=== PATIENT | female | born 1995 | race African-American/Black ===

== ENCOUNTER 2016-05-27 10:52 | Emergency (ER) | payer MEDICAID ==
[~2016-05-27] VITALS: Ht 144.8 cm; Wt 35.4 kg
[2016-05-27 11:19] VITALS: BP 100/68
[2016-05-27] MEDS ORDERED: PROMETHAZINE-C118 M1 ORAL (11:24)
[2016-05-27] MEDS ORDERED: AZITHROMYCIN250 MG ORAL (11:24)
[2016-05-27 11:33] VITALS: BP 101/74
[2016-05-27 11:34] VITALS: BP 100/68
--- NOTE | 2016-05-27 14:00 | Emergency Room Report ---
History of Present Illness General Chief Complaint: Flu Like Symptoms Source: Patient Present Illness HPI 21-year-old female presents to ED complaining of cough x3 weeks. States cough is productive with yellowish sputum. Denies fevers or chills. Notes history of asthma. Denies shortness of breath. Denies sick contacts or recent travel. No aggravating or relieving factors. Denies any other associated symptoms Allergies: Coded Allergies: No Known Allergies (Unverified , 05/27/16) Patient History Past Medical History: asthma Past Surgical History: none Pertinent Family History: none Social History: Denies: alcohol use, drug use, smoking Now: No Immunizations: UTD Reviewed Nursing Documentation: PMH: Agreed, PSxH: Agreed Nursing Documentation-PMH Past Medical History: No History, Except For Hx Asthma: Yes Review of Systems All Other Systems: negative except mentioned in HPI Physical Exam Vital Signs Date Time Temp Pulse Resp B/P Pulse Ox O2 Delivery O2 Flow Rate FiO2 05/27/16 11:11 98.1 106 20 100/68 99 Room Air Sp02 EP Interpretation: reviewed, normal General Appearance: no apparent distress, alert, GCS 15, non-toxic Head: normocephalic Eyes: bilateral eye PERRL, bilateral eye normal inspection ENT: hearing grossly normal, normal pharynx, no angioedema, normal voice Neck: normal inspection Respiratory: chest non-tender, lungs clear, normal breath sounds, speaking full sentences Cardiovascular #1: regular rate, rhythm, no edema Gastrointestinal: normal inspection Rectal: deferred Genitourinary: no CVA tenderness Musculoskeletal: normal inspection Neurologic: normal inspection Psychiatric: normal inspection Skin: normal inspection Lymphatic: normal inspection Medical Decision Making Diagnostic Impression: Primary Impression: Atypical pneumonia ER Course Hospital Course 21-year-old female presents to ED complaining of cough x 3 weeks Differential diagnoses include: URI, pharyngitis, otitis media, asthma Clinical course Patient placed on stretcher. After initial history, physical exam reveals a young female in no acute distress. Bilateral TM unremarkable. No pharyngeal erythema. No tonsillar exudates. No lymphadenopathy. lungs clear. abdomen soft. Persistence of symptoms for 3 weeks we will treat as atypical pneumonia. We will prescribed antibiotic Diagnosis - atypical pneumonia Stable and discharged home with Rx Zpack. Instructed to followup with PMD. Return to ED if symptoms recur or worsen Last Vital Signs Date Time Temp Pulse Resp B/P Pulse Ox O2 Delivery O2 Flow Rate FiO2 05/27/16 11:34 98.1 99 20 100/68 99 Room Air Status: improved Disposition: HOME, SELF-CARE Condition: Stable Scripts Codeine/Promethazine Hcl* (PROMETHAZINE-CODEINE SYRUP*) 118 Ml Syrup 5 ML ORAL Q6H Y for For Cough, #118 ML 0 Refills Prov: CONSTANTINO BEDOLLA M.D. 05/27/16 Azithromycin* (ZITHROMAX*) 250 Mg Tablet 250 MG ORAL DAILY, #6 TAB 0 Refills Take two tablets by mouth today, then take one tablet by mouth daily for four days Prov: CONSTANTINO BEDOLLA M.D. 05/27/16 Referrals: NOT CHOSEN [facility]/,REFERRING (PCP) Patient Instructions: Community-Acquired Pneumonia, Adult CONSTANTINO BEDOLLA M.D. May 27, 2016 14:00
== END 2016-05-27 11:35 | disposition home or self-care (01) ==
LOC: EMR 11:26
DX: J18.9 Pneumonia, unspecified organism (principal); J45.909 Unspecified asthma, uncomplicated
CPT/HCPCS: 99284

== ENCOUNTER 2016-08-03 11:41 | Emergency (ER) | payer MEDICAID ==
[~2016-08-03] VITALS: Ht 144.8 cm; Wt 29.0 kg
[~2016-08-03 11:41] MED LIST: AZITHROMYCIN250 MG ORAL; PROMETHAZINE-C118 M1 ORAL
[2016-08-03 11:55] VITALS: BP 103/86
[2016-08-03] MEDS ORDERED: PredniSONE 20mg tab ORAL ONE (12:00)
[2016-08-03] MEDS ORDERED: Ipratropium 0.02% Inh Soln 2.5ml UD HHN ONE (12:00)
[2016-08-03] MEDS ORDERED: Albuterol ud Inhalation HHN ONE (12:00)
[2016-08-03 12:30] VITALS: BP 105/74
[2016-08-03] MEDS ORDERED: PREDNISONE20 MG ORAL (12:56)
[2016-08-03] MEDS ORDERED: ALBUTEROL SULF8.5 GM INH (12:56)
[2016-08-03 13:04] VITALS: BP 105/74
--- NOTE | 2016-08-03 14:47 | Emergency Room Report ---
History of Present Illness General Chief Complaint: Asthma Source: Patient Present Illness HPI 21-year-old female presents ED complaining of wheezing and shortness of breath since last night. States that she has history of asthma. States her inhaler is not helping. Denies any cough. Denies any chest pain. Denies any fevers or chills. No other aggravating relieving factors. Denies any other associated symptoms Allergies: Coded Allergies: No Known Allergies (Unverified , 05/27/16) Patient History Past Medical History: asthma Past Surgical History: none Pertinent Family History: none Social History: Denies: alcohol use, drug use, smoking Now: No Immunizations: UTD Reviewed Nursing Documentation: PMH: Agreed, PSxH: Agreed Nursing Documentation-PMH Hx Cardiac Problems: No Hx Hypertension: No Hx Pacemaker: No Hx Asthma: Yes Hx COPD: No Hx Diabetes: No Hx Cancer: No Hx Gastrointestinal Problems: No Hx Dialysis: No History Of Psychiatric Problem: No Hx Neurological Problems: No Hx Cerebrovascular Accident: No Hx Seizures: No Review of Systems All Other Systems: negative except mentioned in HPI Physical Exam Vital Signs Date Time Temp Pulse Resp B/P Pulse Ox O2 Delivery O2 Flow Rate FiO2 08/03/16 11:46 98.1 110 18 100/60 99 Room Air Sp02 EP Interpretation: reviewed, normal General Appearance: no apparent distress, alert, GCS 15, non-toxic, thin Head: normocephalic Eyes: bilateral eye PERRL, bilateral eye normal inspection ENT: normal ENT inspection Neck: normal inspection Respiratory: wheezing Cardiovascular #1: regular rate, rhythm, no edema Gastrointestinal: normal bowel sounds Rectal: deferred Genitourinary: no CVA tenderness Musculoskeletal: normal inspection Neurologic: alert, oriented x3, responsive, motor strength/tone normal, sensory intact, speech normal Psychiatric: normal inspection Skin: normal inspection Lymphatic: normal inspection Medical Decision Making Diagnostic Impression: Primary Impression: Asthma attack ER Course Hospital Course 21-year-old female presents to ED complaining of SOB, wheezing Differential diagnoses include: URI, bronchitis, asthma/COPD, pneumonia Clinical course Patient placed on stretcher. After initial history, physical exam reveals a young female in no acute distress. Bilateral TM unremarkable. No pharyngeal erythema. No tonsillar exudates. No lymphadenopathy. Mild wheezing noted on exam, no signs of respiratory distress or retractions. Patient given Prednisone and albuterol treatment in ED with symptoms improved. Reassurance given Diagnosis - asthma attack Stable and discharged home with prescriptions for prednisone, albuterol. Instructed to followup with PMD. Return to ED if symptoms recur or worsen Last Vital Signs Date Time Temp Pulse Resp B/P Pulse Ox O2 Delivery O2 Flow Rate FiO2 08/03/16 13:04 98.1 115 18 105/74 100 Room Air Status: improved Disposition: HOME, SELF-CARE Condition: Stable Scripts Prednisone* (PREDNISONE*) 20 Mg Tablet 40 MG ORAL DAILY, #10 TAB Prov: CONSTANTINO BEDOLLA M.D. 08/03/16 Albuterol Sulfate* (ALBUTEROL SULFATE MDI*) 8.5 Gm Hfa.aer.ad 2 PUFF INH Q4H, #1 INH 0 Refills Prov: CONSTANTINO BEDOLLA M.D. 08/03/16 Referrals: NOT CHOSEN [facility]/,REFERRING (PCP) Patient Instructions: Asthma, Adult CONSTANTINO BEDOLLA M.D. Aug 03, 2016 14:47
== END 2016-08-03 13:06 | disposition home or self-care (01) ==
LOC: EMR 12:38
DX: J45.909 Unspecified asthma, uncomplicated (principal)
CPT/HCPCS: 94640; 99284

== ENCOUNTER 2018-06-03 13:58 | Emergency (ER) | payer MEDICAID ==
[~2018-06-03] VITALS: Ht 149.9 cm; Wt 31.8 kg
[~2018-06-03 13:58] MED LIST changes: +ALBUTEROL SULF8.5 GM INH; +PREDNISONE20 MG ORAL
[2018-06-03 14:16] VITALS: BP 103/70
--- NOTE | 2018-06-03 14:16 | NUR ---
ED Nurse Note: pt walked in to ED due to coughing, chest congestion, fever, and chills for last few days. respirations even and non-labored noted. breath sounds clear. intermittent cough noted. no fever at this time. will wait for the further order.
--- NOTE | 2018-06-03 14:20 | NUR ---
ED Nurse Note: RT called.
[2018-06-03] MEDS ORDERED: Albuterol/Ipratropium 3ml neb HHN ONE (14:45)
--- NOTE | 2018-06-03 15:30 | Emergency Room Report ---
History of Present Illness General Chief Complaint: Upper Respiratory Illness Source: Medical Record Present Illness HPI 23-year-old female presents to the emergency department complaining of productive cough 2 weeks with subjective fevers and chills. Patient reports she has a history of asthma she denies smoking or COPD. reports 4/10 in severity ribcage/lung pains when coughing only. no relieving factors, has been using inhaler with no relief. Patient denies recent travel or ill contacts.Denies sore throat, ear pain, high fevers, lethargy, neck pain/ stiffness, irritability, photophobia dehydration, N/V/D. Denies Cp, Palpitations , LOC, AMS, seizures, paresthesias, or changes in Hearing or vision, no Sudden severe MILNER. Denies hx of smoking, asthma or COPD. 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 Hx Hypertension: No Hx Pacemaker: No Hx Asthma: Yes Hx COPD: No Hx Diabetes: No Hx Cancer: No Hx Gastrointestinal Problems: No Hx Dialysis: No History Of Psychiatric Problem: No Hx Neurological Problems: No Hx Cerebrovascular Accident: No Hx Seizures: No Review of Systems All Other Systems: negative except mentioned in HPI Physical Exam Vital Signs Date Time Temp Pulse Resp B/P (MAP) Pulse Ox O2 Delivery O2 Flow Rate FiO2 06/03/18 14:02 98.2 108 22 103/70 99 Room Air 06/03/18 14:59 21 Sp02 EP Interpretation: reviewed, normal General Appearance: no apparent distress, alert, GCS 15, non-toxic Head: normocephalic, atraumatic Eyes: bilateral eye normal inspection, bilateral eye PERRL ENT: hearing grossly normal, normal voice, pharyngeal erythema Neck: full range of motion Respiratory: chest non-tender, lungs clear, speaking full sentences, wheezing Cardiovascular #1: regular rate, rhythm Musculoskeletal: gait/station normal, normal range of motion, non-tender Neurologic: alert, oriented x3, responsive, motor strength/tone normal, sensory intact, speech normal, grossly normal Psychiatric: judgement/insight normal Skin: normal color, no rash, warm/dry, well hydrated Lymphatic: no adenopathy Medical Decision Making PA Attestation Dr. Adamson is my supervising Physician whom patient management has been discussed with. Diagnostic Impression: Primary Impression: Atypical pneumonia ER Course 23-year-old female presents to the emergency department complaining of productive cough 2 weeks with subjective fevers and chills. Patient reports she has a history of asthma she denies smoking or COPD. reports 4/10 in severity ribcage/lung pains when coughing only. no relieving factors, has been using inhaler with no relief. Patient denies recent travel or ill contacts.Denies sore throat, ear pain, high fevers, lethargy, neck pain/ stiffness, irritability, photophobia dehydration, N/V/D. Denies Cp, Palpitations , LOC, AMS, seizures, paresthesias, or changes in Hearing or vision, no Sudden severe MILNER. Denies hx of smoking, asthma or COPD. . Ddx considered but are not limited to URI, pneumonia, PE, strep pharyngitis, meningitis. Vital signs: Pt.is afebrile VS are WNL H&PE are most consistent with atypical PNA ORDERS: none required at this time, the diagnosis is clinical ED INTERVENTIONS: -Elizabeth RESENDEZN -I do not identify an emergent condition at this time. With current presentation , pt. is stable for close outpatient follow up and conservative treatment. D/ w pt. to return promptly to ED with worsening or new symptoms.- Pt. verbalizes' understanding and agreement with proposed treatment plan.proposed treatment plan. DISCHARGE: At this time pt. is stable for d/c to home. Will provide printed patient care instructions, and any necessary prescriptions. Care plan and follow up instructions have been discussed with the patient prior to discharge. Last Vital Signs Date Time Temp Pulse Resp B/P (MAP) Pulse Ox O2 Delivery O2 Flow Rate FiO2 06/03/18 14:59 115 22 96 Room Air 21 06/03/18 14:16 98.2 103/70 Disposition: HOME, SELF-CARE Condition: Stable Scripts Prednisone* (PREDNISONE*) 20 Mg Tablet 40 MG ORAL DAILY for 4 Days, #8 TAB Prov: Fabiola Damon 06/03/18 Guaifenesin (Guaifenesin) 1,200 Mg Tab.er.12h 1200 MG PO Q12HR, #20 TAB Prov: Fabiola Damon 06/03/18 Azithromycin* (ZITHROMAX*) 250 Mg Tablet 250 MG ORAL DAILY, #6 TAB 0 Refills Take two tables once daily for 1 day, then one tablet once daily for 4 days. Prov: Fabiola Damon 06/03/18 Codeine/Promethazine Hcl* (PROMETHAZINE-CODEINE SYRUP*) 118 Ml Syrup 5 ML ORAL Q6H PRN for For Cough, #120 ML 0 Refills Prov: Fabiola Damon 06/03/18 Referrals: NON PHYSICIAN (PCP) Patient Instructions: Upper Respiratory Infection, Adult Additional Instructions: Take medications as directed. Follow up with a Primary Care Provider in 3-5 days, even if your symptoms have resolved. --Please review list of primary care clinics, if you do not already have a primary care provider Return sooner to ED if new symptoms occur, or current symptoms become worse. Do not drink alcohol, drive, or operate heavy machinery while taking Cough Syrup as this may cause drowsiness. - Please note that this Emergency Department Report was dictated using [employer] packer operator technology software, occasionally this can lead to erroneous entry secondary to interpretation by the dictation equipment. Fabiola Damon Jun 03, 2018 15:30
[2018-06-03] MEDS ORDERED: GUAIFENESIN1200 MG PO (15:32)
[2018-06-03] MEDS ORDERED: PREDNISONE20 MG ORAL (15:32)
[2018-06-03] MEDS ORDERED: ZITHROMAX250 MG ORAL (15:32)
[2018-06-03] MEDS ORDERED: PROMETHAZINE-C118 M1 ORAL (15:32)
[2018-06-03 15:50] VITALS: BP 108/72
--- NOTE | 2018-06-03 15:51 | NUR ---
ER DISCHARGE NOTE: Patient is cleared to be discharged per ERMD, pt is aox4, on room air, with stable vital signs. pt was given dc and prescription instructions, pt was able to verbalize understanding, pt id band removed. pt is able to ambulate with steady gait. pt took all belongings.
== END 2018-06-03 15:52 | disposition home or self-care (01) ==
LOC: EMR 14:10
DX: J18.9 Pneumonia, unspecified organism (principal); J45.909 Unspecified asthma, uncomplicated
CPT/HCPCS: 94640; 99284; J7620

== ENCOUNTER 2018-11-15 18:49 | Inpatient (IN) | payer MEDICAID, OTHER ==
[~2018-11-15] VITALS: Ht 144.8 cm; Wt 27.2 kg
[~2018-11-15 18:49] MED LIST changes: +GUAIFENESIN1200 MG PO; +ZITHROMAX250 MG ORAL
[2018-11-15 19:01] VITALS: BP 100/70
--- NOTE | 2018-11-15 19:02 | NUR ---
ED Nurse Note: Pt walked into ED C/O sore throat for few days today pt has N/V. pt is alert x4. VSS.
--- NOTE | 2018-11-15 19:15 | NUR ---
ED Nurse Note: urine and blood work sent to lab
[2018-11-15 19:43] LABS: HEMATOCRIT 34.7 % (37.0-47.0); HEMOGLOBIN 10.7 G/DL (12.0-16.0); MEAN CORPUSCULAR VOLUME 81 FL (80-99); PLATELET COUNT 479 K/UL (150-450); RED BLOOD COUNT 4.29 M/UL (4.20-5.40); RED CELL DISTRIBUTION WIDTH 12.2 % (11.6-14.8)
[2018-11-15 19:44] LABS: WHITE BLOOD COUNT 23.7 K/UL (4.8-10.8)
[2018-11-15 19:48] LABS: APPEARANCE,URINE CLEAR; BILIRUBIN, URINE NEGATIVE (NEGATIVE); COLOR,URINE PALE YELLOW; GLUCOSE, URINE (UA) NEGATIVE (NEGATIVE); KETONES,URINE 1+ (NEGATIVE); LEUKOCYTE ESTERASE ,URINE NEGATIVE (NEGATIVE); NITRITE,URINE NEGATIVE (NEGATIVE); PH,URINE 6.5 (4.5-8.0); PROTEIN,URINE NEGATIVE (NEGATIVE); UROBILINOGEN,URINE NORMAL MG/DL (0.0-1.0)
[2018-11-15 19:53] LABS: ANION GAP 8 mmol/L (5-15); BLOOD UREA NITROGEN 14 mg/dL (7-18); CALCIUM 8.2 MG/DL (8.5-10.1); CARBON DIOXIDE 27 MMOL/L (21-32); CHLORIDE 106 MMOL/L (98-107); CREATININE 0.8 MG/DL (0.55-1.30); POTASSIUM 3.7 MMOL/L (3.5-5.1); SODIUM 141 MMOL/L (136-145)
[2018-11-15 19:57] LABS: ALANINE AMINOTRANSFERASE 63 U/L (12-78); ALBUMIN 3.3 G/DL (3.4-5.0); ALBUMIN/GLOBULIN RATIO 0.8 (1.0-2.7); ALKALINE PHOSPHATASE 51 U/L (46-116); ASPARTATE AMINO TRANSFERASE 37 U/L (15-37); BILIRUBIN,TOTAL 0.6 MG/DL (0.2-1.0)
[2018-11-15 21:05] VITALS: BP 99/75
--- NOTE | 2018-11-15 21:34 | Emergency Room Report ---
History of Present Illness General Chief Complaint: Gastrointestinal Illness Present Illness HPI 23-year-old female presents to the emergency department complaining of severe generalized weakness and fatigue post multiple episodes of nausea and vomiting since this morning. Patient also reports initial symptom was a sore throat this a.m. Patient denies fevers or chills she denies ill contacts with similar symptoms or recent travel. Patient denies abdominal tenderness denies or suspicion of . Patient denies dysuria, hematuria, urinary frequency or urgency. She reports multiple episodes of dizziness as well and having cold sweats. She denies MILNER or photophobia. Significant past medical history is Lc-Silver syndrome. She denies constipation or diarrhea. Denies trauma or fall. Denies rashes, swollen tender lymph nodes, night sweats or significant changes in weight unintentionally. Allergies: Coded Allergies: No Known Allergies (Unverified , 05/27/16) Patient History Past Medical History: see triage record Past Surgical History: none Pertinent Family History: none Last Menstrual Period: last month Now: No Immunizations: UTD - received flu vaccination last week. Reviewed Nursing Documentation: PMH: Agreed; PSxH: Agreed Nursing Documentation-PMH Past Medical History: No History, Except For Hx Hypertension: No Hx Pacemaker: No Hx Asthma: Yes Hx COPD: No Hx Diabetes: No Hx Cancer: No Hx Gastrointestinal Problems: No Hx Dialysis: No Hx Neurological Problems: No Hx Cerebrovascular Accident: No Hx Seizures: No Review of Systems All Other Systems: negative except mentioned in HPI Physical Exam Vital Signs Date Time Temp Pulse Resp B/P (MAP) Pulse Ox O2 Delivery O2 Flow Rate FiO2 11/15/18 18:54 98.1 116 20 102/70 (81) 98 Room Air Sp02 EP Interpretation: reviewed, normal General Appearance: alert, GCS 15, non-toxic, mild distress, thin Head: normocephalic, atraumatic Eyes: bilateral eye normal inspection, bilateral eye PERRL ENT: hearing grossly normal, normal voice, pharyngeal erythema Neck: full range of motion, no meningismus, no bony tend Respiratory: lungs clear, normal breath sounds, speaking full sentences Cardiovascular #1: regular rate, rhythm, tachycardia Gastrointestinal: normal bowel sounds, non tender, soft, non-distended, no guarding Genitourinary: normal inspection, no CVA tenderness Musculoskeletal: back normal, gait/station normal, normal range of motion, non- tender Neurologic: alert, oriented x3, responsive, motor strength/tone normal, sensory intact, speech normal, grossly normal Psychiatric: judgement/insight normal Lymphatic: no adenopathy Medical Decision Making PA Attestation Dr. Vital is my supervising Physician whom patient management has been discussed with. ER Course Pt. presents to the ED c/o [ ] Ddx considered but are not limited to : GE, , URI, dehydration just to name a few. Vital signs: Tachycardic , afebrile H&PE are most consistent with moderate dehydration will do abdominal labs ORDERS: -CBC: leukocytosis 23.7, thrombocytopenia -CMP: Ca 8.2 -Lipase: 512 -Blood Cultures : Pending -Lactic Acid: Pending repeat -CBC: Pending -Lipase: Pending ED INTERVENTIONS: 2 Liters NS Bolus DISPOSITION: PT. signed out to Dr. Puckett pending Admission Labs Test 11/15/18 19:00 White Blood Count 23.7 K/UL (4.8-10.8) Red Blood Count 4.29 M/UL (4.20-5.40) Hemoglobin 10.7 G/DL (12.0-16.0) Hematocrit 34.7 % (37.0-47.0) Mean Corpuscular Volume 81 FL (80-99) Mean Corpuscular Hemoglobin 24.9 PG (27.0-31.0) Mean Corpuscular Hemoglobin Concent 30.8 G/DL (32.0-36.0) Red Cell Distribution Width 12.2 % (11.6-14.8) Platelet Count 479 K/UL (150-450) Mean Platelet Volume 5.8 FL (6.5-10.1) Neutrophils (%) (Auto) % (45.0-75.0) Lymphocytes (%) (Auto) % (20.0-45.0) Monocytes (%) (Auto) % (1.0-10.0) Eosinophils (%) (Auto) % (0.0-3.0) Basophils (%) (Auto) % (0.0-2.0) Differential Total Cells Counted 100 Neutrophils % (Manual) 91 % (45-75) Lymphocytes % (Manual) 3 % (20-45) Monocytes % (Manual) 3 % (1-10) Eosinophils % (Manual) 1 % (0-3) Basophils % (Manual) 0 % (0-2) Band Neutrophils 2 % (0-8) Platelet Estimate Increased Platelet Morphology Normal Polychromasia 1+ Urine Color Pale yellow Urine Appearance Clear Urine pH 6.5 (4.5-8.0) Urine Specific [place] 1.015 (1.005-1.035) Urine Protein Negative (NEGATIVE) Urine Glucose (UA) Negative (NEGATIVE) Urine Ketones 1+ (NEGATIVE) Urine Blood Negative (NEGATIVE) Urine Nitrite Negative (NEGATIVE) Urine Bilirubin Negative (NEGATIVE) Urine Urobilinogen Normal MG/DL (0.0-1.0) Urine Leukocyte Esterase Negative (NEGATIVE) Urine HCG, Qualitative Negative (NEGATIVE) Sodium Level 141 MMOL/L (136-145) Potassium Level 3.7 MMOL/L (3.5-5.1) Chloride Level 106 MMOL/L (98-107) Carbon Dioxide Level 27 MMOL/L (21-32) Anion Gap 8 mmol/L (5-15) Blood Urea Nitrogen 14 mg/dL (7-18) Creatinine 0.8 MG/DL (0.55-1.30) Estimat Glomerular Filtration Rate > 60 mL/min (>60) Glucose Level 139 MG/DL (74-106) Calcium Level 8.2 MG/DL (8.5-10.1) Total Bilirubin 0.6 MG/DL (0.2-1.0) Aspartate Amino Transf (AST/SGOT) 37 U/L (15-37) Alanine Aminotransferase (ALT/SGPT) 63 U/L (12-78) Alkaline Phosphatase 51 U/L (46-116) Total Protein 7.6 G/DL (6.4-8.2) Albumin 3.3 G/DL (3.4-5.0) Globulin 4.3 g/dL Albumin/Globulin Ratio 0.8 (1.0-2.7) Lipase 512 U/L (73-393) Last Vital Signs Date Time Temp Pulse Resp B/P (MAP) Pulse Ox O2 Delivery O2 Flow Rate FiO2 11/15/18 19:01 92 20 Room Air 11/15/18 19:01 98.1 100/70 98 Disposition: ADMITTED INPATIENT Condition: Serious Signed Out To: Fabiola Negron Nov 15, 2018 21:34
--- NOTE | 2018-11-15 21:52 | NUR ---
ED Nurse Note: pt sitting in bed awake. No acute distress is noted at this time.
--- NOTE | 2018-11-15 22:19 | Emergency Room Report ---
Physical Exam Vital Signs Date Time Temp Pulse Resp B/P (MAP) Pulse Ox O2 Delivery O2 Flow Rate FiO2 11/15/18 18:54 98.1 116 20 102/70 (81) 98 Room Air (Eduardo Vital MD) Medical Decision Making Diagnostic Impression: Primary Impression: Pancreatitis Qualified Codes: K85.90 - Acute pancreatitis without necrosis or infection, unspecified Additional Impressions: Leukocytosis Qualified Codes: D72.829 - Elevated white blood cell count, unspecified Thrombocythemia Anemia Qualified Codes: D64.9 - Anemia, unspecified ER Course I supervised the care of this patient with EDITH Senior and agree with the treatment plan Briefly, this is a 23-year-old otherwise healthy female who presented to the emergency department today for nausea vomiting with lightheadedness and sore throat days ago. She was found to have a significant leukocytosis with a left shift at 91. Thrombocytosis and anemic though does not require transfusion is not actively bleeding. Lipase was elevated. LFTs were within normal limits. A CT scan and right upper quadrant ultrasound will be ordered. Repeat CBC and lipase after IV fluids. Patient will be signed out to Dr. Puckett pending repeat labs and CT results Laboratory Tests Test 11/15/18 19:00 White Blood Count 23.7 K/UL (4.8-10.8) *H Red Blood Count 4.29 M/UL (4.20-5.40) Hemoglobin 10.7 G/DL (12.0-16.0) L Hematocrit 34.7 % (37.0-47.0) L Mean Corpuscular Volume 81 FL (80-99) Mean Corpuscular Hemoglobin 24.9 PG (27.0-31.0) L Mean Corpuscular Hemoglobin Concent 30.8 G/DL (32.0-36.0) L Red Cell Distribution Width 12.2 % (11.6-14.8) Platelet Count 479 K/UL (150-450) H Mean Platelet Volume 5.8 FL (6.5-10.1) L Neutrophils (%) (Auto) % (45.0-75.0) Lymphocytes (%) (Auto) % (20.0-45.0) Monocytes (%) (Auto) % (1.0-10.0) Eosinophils (%) (Auto) % (0.0-3.0) Basophils (%) (Auto) % (0.0-2.0) Differential Total Cells Counted 100 Neutrophils % (Manual) 91 % (45-75) H Lymphocytes % (Manual) 3 % (20-45) L Monocytes % (Manual) 3 % (1-10) Eosinophils % (Manual) 1 % (0-3) Basophils % (Manual) 0 % (0-2) Band Neutrophils 2 % (0-8) Platelet Estimate Increased H Platelet Morphology Normal Polychromasia 1+ Urine Color Pale yellow Urine Appearance Clear Urine pH 6.5 (4.5-8.0) Urine Specific [place] 1.015 (1.005-1.035) Urine Protein Negative (NEGATIVE) Urine Glucose (UA) Negative (NEGATIVE) Urine Ketones 1+ (NEGATIVE) H Urine Blood Negative (NEGATIVE) Urine Nitrite Negative (NEGATIVE) Urine Bilirubin Negative (NEGATIVE) Urine Urobilinogen Normal MG/DL (0.0-1.0) Urine Leukocyte Esterase Negative (NEGATIVE) Urine HCG, Qualitative Negative (NEGATIVE) Sodium Level 141 MMOL/L (136-145) Potassium Level 3.7 MMOL/L (3.5-5.1) Chloride Level 106 MMOL/L (98-107) Carbon Dioxide Level 27 MMOL/L (21-32) Anion Gap 8 mmol/L (5-15) Blood Urea Nitrogen 14 mg/dL (7-18) Creatinine 0.8 MG/DL (0.55-1.30) Estimate Glomerular Filtration Rate > 60 mL/min (>60) Glucose Level 139 MG/DL (74-106) H Calcium Level 8.2 MG/DL (8.5-10.1) L Total Bilirubin 0.6 MG/DL (0.2-1.0) Aspartate Amino Transferase (AST) 37 U/L (15-37) Alanine Aminotransferase (ALT) 63 U/L (12-78) Alkaline Phosphatase 51 U/L (46-116) Total Protein 7.6 G/DL (6.4-8.2) Albumin 3.3 G/DL (3.4-5.0) L Globulin 4.3 g/dL Albumin/Globulin Ratio 0.8 (1.0-2.7) L Lipase 512 U/L (73-393) H (Eduardo Vital MD) ER Course Patient to be admitted for pancreatitis Patient admitted to Dr. Shun Love Laboratory Tests Test 11/15/18 19:00 11/15/18 23:00 White Blood Count 23.7 K/UL (4.8-10.8) *H 22.0 K/UL (4.8-10.8) H Red Blood Count 4.29 M/UL (4.20-5.40) 4.56 M/UL (4.20-5.40) Hemoglobin 10.7 G/DL (12.0-16.0) L 11.2 G/DL (12.0-16.0) L Hematocrit 34.7 % (37.0-47.0) L 36.3 % (37.0-47.0) L Mean Corpuscular Volume 81 FL (80-99) 80 FL (80-99) Mean Corpuscular Hemoglobin 24.9 PG (27.0-31.0) L 24.7 PG (27.0-31.0) L Mean Corpuscular Hemoglobin Concent 30.8 G/DL (32.0-36.0) L 30.9 G/DL (32.0-36.0) L Red Cell Distribution Width 12.2 % (11.6-14.8) 13.3 % (11.6-14.8) Platelet Count 479 K/UL (150-450) H 500 K/UL (150-450) H Mean Platelet Volume 5.8 FL (6.5-10.1) L 5.5 FL (6.5-10.1) L Neutrophils (%) (Auto) % (45.0-75.0) % (45.0-75.0) Lymphocytes (%) (Auto) % (20.0-45.0) % (20.0-45.0) Monocytes (%) (Auto) % (1.0-10.0) % (1.0-10.0) Eosinophils (%) (Auto) % (0.0-3.0) % (0.0-3.0) Basophils (%) (Auto) % (0.0-2.0) % (0.0-2.0) Differential Total Cells Counted 100 100 Neutrophils % (Manual) 91 % (45-75) H 84 % (45-75) H Lymphocytes % (Manual) 3 % (20-45) L 9 % (20-45) L Monocytes % (Manual) 3 % (1-10) 7 % (1-10) Eosinophils % (Manual) 1 % (0-3) 0 % (0-3) Basophils % (Manual) 0 % (0-2) 0 % (0-2) Band Neutrophils 2 % (0-8) 0 % (0-8) Platelet Estimate Increased H Adequate Platelet Morphology Normal Normal Polychromasia 1+ Urine Color Pale yellow Urine Appearance Clear Urine pH 6.5 (4.5-8.0) Urine Specific [place] 1.015 (1.005-1.035) Urine Protein Negative (NEGATIVE) Urine Glucose (UA) Negative (NEGATIVE) Urine Ketones 1+ (NEGATIVE) H Urine Blood Negative (NEGATIVE) Urine Nitrite Negative (NEGATIVE) Urine Bilirubin Negative (NEGATIVE) Urine Urobilinogen Normal MG/DL (0.0-1.0) Urine Leukocyte Esterase Negative (NEGATIVE) Urine HCG, Qualitative Negative (NEGATIVE) Sodium Level 141 MMOL/L (136-145) Potassium Level 3.7 MMOL/L (3.5-5.1) Chloride Level 106 MMOL/L (98-107) Carbon Dioxide Level 27 MMOL/L (21-32) Anion Gap 8 mmol/L (5-15) Blood Urea Nitrogen 14 mg/dL (7-18) Creatinine 0.8 MG/DL (0.55-1.30) Estimate Glomerular Filtration Rate > 60 mL/min (>60) Glucose Level 139 MG/DL (74-106) H Calcium Level 8.2 MG/DL (8.5-10.1) L Total Bilirubin 0.6 MG/DL (0.2-1.0) Aspartate Amino Transferase (AST) 37 U/L (15-37) Alanine Aminotransferase (ALT) 63 U/L (12-78) Alkaline Phosphatase 51 U/L (46-116) Total Protein 7.6 G/DL (6.4-8.2) Albumin 3.3 G/DL (3.4-5.0) L Globulin 4.3 g/dL Albumin/Globulin Ratio 0.8 (1.0-2.7) L Lipase 512 U/L (73-393) H 732 U/L (73-393) H Lactic Acid Level 1.00 mmol/L (0.4-2.0) (Seamus Puckett MD) CT/MRI/US Diagnostic Results CT/MRI/US Diagnostic Results : Impression Preliminary Findings Only See Final Report For Complete Findings CT ABDOMEN & PELVIS With Contrast: Lower lungs: No acute findings. Liver: Unremarkable. Gallbladder: Unremarkable. Spleen, pancreas, and adrenal glands: No acute findings. Kidneys: No hydronephrosis or obstructive nephrolithiasis. Bowel: No bowel obstruction. Diffusely fluid-filled hyperemic small bowel, correlate with gastroenteritis. Appendix: Not visualized. No secondary signs of appendicitis is seen however. If further evaluation is required consider oral contrast administration. Bladder: Unremarkable. Pelvic organs: Fluid-filled endometrium. Trace pelvic free fluid, possibly physiologic.. Vessels: No aortic aneurysm. Bones: No acute fracture. Radiologist: Abby Horner MD Study ready at 01:29 and initial results transmitted at 01:54 (Seamus Puckett MD) Last Vital Signs Date Time Temp Pulse Resp B/P (MAP) Pulse Ox O2 Delivery O2 Flow Rate FiO2 11/15/18 19:01 92 20 Room Air 11/15/18 19:01 98.1 100/70 98 (Eduardo Vital MD) Disposition: ADMITTED INPATIENT Condition: Stable Referrals: [facility],REFERRING (PCP) Eduardo Vital MD Nov 15, 2018 22:19 Seamus Puckett MD Nov 16, 2018 01:18
[2018-11-15 23:14] VITALS: BP 104/71
[2018-11-15 23:27] LABS: HEMATOCRIT 36.3 % (37.0-47.0); HEMOGLOBIN 11.2 G/DL (12.0-16.0); MEAN CORPUSCULAR VOLUME 80 FL (80-99); PLATELET COUNT 500 K/UL (150-450); RED BLOOD COUNT 4.56 M/UL (4.20-5.40); RED CELL DISTRIBUTION WIDTH 13.3 % (11.6-14.8)
[2018-11-15] MEDS ORDERED: Omnipaque-300 100ml vial INJ PRN (23:30)
--- NOTE | 2018-11-15 23:31 | NUR ---
ED Nurse Note: went down for ultrasound.
[2018-11-16] VITALS (7 sets, daily range): BP systolic 90–128; BP diastolic 62–83
--- NOTE | 2018-11-16 00:26 | Diagnostic Imaging Report ---
Indication: Abdominal pain, history of pancreatitis Technique: Moran-scale and duplex images of the upper abdomen were obtained Comparison: Reference made to subsequent abdomen pelvis CT Findings: Gallbladder is not clearly demonstrated, noted to be contracted on subsequent CT scan. Common bile duct measures 2 mm diameter. No intrahepatic biliary ductal dilatation . Liver demonstrates normal echogenicity, no focal abnormality. Portal vein and hepatic veins are patent. Pancreas is unremarkable. Spleen is unremarkable. Left kidney cannot be visualized. Right kidney measures 5.7 cm length. Right kidney demonstrates slightly increased echogenicity. There is no hydronephrosis. No focal abnormality . Non-aneurysmal abdominal aorta . Impression: Nonvisualized gallbladder, noted to be contracted on subsequent CT scan Nonvisualized left kidney Negative for biliary ductal dilatation Apparently small right kidney, presumably artifactual as it is documented to be normal in size on subsequent CT
--- NOTE | 2018-11-16 01:09 | NUR ---
ED Nurse Note: PT BACK FROM CT.
--- NOTE | 2018-11-16 01:41 | NUR ---
ED Nurse Note: REPORT GIVEN TO RN GRADY FROM
--- NOTE | 2018-11-16 01:45 | NUR ---
TRANSFER TO FLOOR: Patient transferred to [place] as ordered by in flight technician via wheelchair, per ERMD. Report given to RN GRADY FROM [facility]. Belongings sent w/ pt w/ completed list and endorsed to receiving RN. pt vss, resp even and unlabored on RA, iv intact and patent.
--- NOTE | 2018-11-16 01:50 | NUR ---
NURSE NOTES: RECEIVED REPORT FROM BLANCA GALDAMEZ. PT WAS SAFELY TRANSFERRED TO UNIT VIA WHEELCHAIR. PT IS AWAKE, AAOX4, ON ROOM AIR, VSS, NO ACUTE DISTRESS NOTED. BELONGING LIST WAS REVIEWED AND SIGNED WITH PATIENT. ORIENTED PATIENT TO UNIT AND ROOM. PT DENIES PAIN AT THE MOMENT; HOWEVER, C/O ABDOMEN BLOATING. ABDOMEN IS FLAT AND SOFT, BOWEL SOUNDS ACTIVE UPON ASSESSMENT. IV ON RIGHT AC 20G IS INTACT AND PATENT. SKIN IS INTACT. PT IS AMBULATORY WITH STEADY GAIT. BED IS LOCKED AND LOW, BED ALARMS ACTIVE, SIDE RAILS UP X2 AND CALL LIGHT IS WITHIN REACH. WILL CONTINUE TO MONITOR.
--- NOTE | 2018-11-16 01:55 | Diagnostic Imaging Report ---
Clinical Indication: Abdominal pain for one day Technique: No oral contrast utilized, per emergency room physician request IV administration nonionic contrast. Venous phase spiral acquisition obtained through the abdomen and pelvis. Multiplanar reconstructions were generated. Total dose length product 2131 mGycm. CTDIvol(s) 30 mGy. Dose reduction achieved using automated exposure control Comparison: none Findings: Exam is limited as the lower pelvis was excluded from imaging volume. The appendix is never definitely identified, but no findings to suggest acute appendicitis are evident. Focally fluid-filled mid abdominal bowel loops are noted. Uncertain as to whether this represents normal caliber colon or dilated small bowel. The distal esophagus is unremarkable. The stomach demonstrates equivocally prominent mucosal enhancement. Small bowel also demonstrates equivocally prominent mucosal enhancement although suspect that this is related to phase of scanning. The gallbladder is nondistended. The liver demonstrates unusual contrast opacification at the tip of the right hepatic lobe. Suspect this is physiologic related to phase of scanning. The bile ducts, pancreas, spleen, adrenals, kidneys are all unremarkable. No retroperitoneal or mesenteric mass or adenopathy. No definite pelvic mass or adenopathy, although as mentioned earlier the lower pelvis is excluded. The included lung bases are clear. There is fusion hardware seen in the lower thoracic spine. There is scoliotic deformity noted. Impression: Equivocal prominent mucosal enhancement of the stomach and small bowel, could be related to phase of scanning but could also be related to gastroenteritis No other acute abnormality Scoliosis This agrees with the preliminary interpretation provided overnight by [facility] teleradiology service. The CT scanner at [facility] is accredited by the [employer] and the scans are performed using protocols designed to limit radiation exposure to as low as reasonably achievable to attain images of sufficient resolution adequate for diagnostic evaluation.
--- NOTE | 2018-11-16 02:30 | NUR ---
NURSE NOTES: ATTEMPTED TO CONTACT FOR ADMISSION ORDERS MULTIPLE TIMES. LEFT VOICEMAILS. WAITING FOR RESPONDS.
--- NOTE | 2018-11-16 04:00 | NUR ---
NURSE NOTES: RECEIVED ORDERS FROM . WILL CONTINUE WITH PLAN OF CARE.
[2018-11-16 06:06] LABS: BASOPHILS % (AUTO) 0.9 % (0.0-2.0); EOSINOPHILS % (AUTO) 0.9 % (0.0-3.0); HEMATOCRIT 27.9 % (37.0-47.0); HEMOGLOBIN 8.6 G/DL (12.0-16.0); LYMPHOCYTES % (AUTO) 17.9 % (20.0-45.0); MEAN CORPUSCULAR VOLUME 80 FL (80-99); MONOCYTES % (AUTO) 6.8 % (1.0-10.0); NEUTROPHILS % (AUTO) 73.6 % (45.0-75.0); PLATELET COUNT 398 K/UL (150-450); RED BLOOD COUNT 3.49 M/UL (4.20-5.40)
[2018-11-16 06:17] LABS: ALANINE AMINOTRANSFERASE 48 U/L (12-78); ALBUMIN 2.5 G/DL (3.4-5.0); ALBUMIN/GLOBULIN RATIO 0.8 (1.0-2.7); ALKALINE PHOSPHATASE 40 U/L (46-116); ANION GAP 10 mmol/L (5-15); ASPARTATE AMINO TRANSFERASE 28 U/L (15-37); BILIRUBIN,TOTAL 0.5 MG/DL (0.2-1.0); BLOOD UREA NITROGEN 7 mg/dL (7-18); CALCIUM 6.9 MG/DL (8.5-10.1); CARBON DIOXIDE 20 MMOL/L (21-32); CHLORIDE 109 MMOL/L (98-107); CREATININE 0.5 MG/DL (0.55-1.30); POTASSIUM 3.6 MMOL/L (3.5-5.1); SODIUM 139 MMOL/L (136-145)
--- NOTE | 2018-11-16 07:43 | NUR ---
HAND-OFF: Report given to BLANCA Montiel.
--- NOTE | 2018-11-16 08:19 | NUR ---
NURSE NOTES: Patient is awake and alert and oriented,IV fluids infusing as ordered.patient ambulated to the bathroom gait is steady,Back to bed no complasinys at this arya.SCDs are on,call light within reach .
--- NOTE | 2018-11-16 10:17 | Consultation ---
History of Present Illness General Chief Complaint: Gastrointestinal Illness Present Illness Allergies: Coded Allergies: No Known Allergies (Unverified , 05/27/16) Medication History Scheduled Albuterol Sulfate* (Albuterol Sulfate Mdi*), 2 PUFF INH Q4H Azithromycin* (Zithromax*), 250 MG ORAL DAILY Azithromycin* (Zithromax*), 250 MG ORAL DAILY Guaifenesin (Guaifenesin), 1,200 MG PO Q12HR Prednisone* (Prednisone*), 40 MG ORAL DAILY Prednisone* (Prednisone*), 40 MG ORAL DAILY Scheduled PRN Codeine/Promethazine Hcl* (Promethazine-Codeine Syrup*), 5 ML ORAL Q6H PRN for For Cough Codeine/Promethazine Hcl* (Promethazine-Codeine Syrup*), 5 ML ORAL Q6H PRN for For Cough Patient History Healthcare decision maker Resuscitation status Full Code Advanced Directive on File Physical Exam Last 24 Hour Vital Signs Date Time Temp Pulse Resp B/P (MAP) Pulse Ox O2 Delivery O2 Flow Rate FiO2 11/16/18 04:00 98.9 97 18 101/68 (79) 98 11/16/18 03:22 Room Air 11/16/18 02:00 98.1 100 18 128/83 (98) 99 11/16/18 01:45 97.8 96 18 106/68 99 Room Air 11/16/18 01:19 97.8 98 19 106/68 97 Room Air 11/15/18 23:14 98.0 98 17 104/71 98 Room Air 11/15/18 21:05 98.0 98 19 99/75 100 Room Air 11/15/18 19:01 92 20 Room Air 11/15/18 19:01 98.1 98 20 100/70 98 Room Air 11/15/18 18:54 98.1 116 20 102/70 (81) 98 Room Air Intake and Output 11/15/18 11/16/18 19:00 07:00 Intake Total 6000 ml Balance 6000 ml Intake Oral 0 ml IV Total 6000 ml # Voids 5 Laboratory Tests Test 11/15/18 19:00 11/15/18 23:00 11/16/18 05:30 White Blood Count 23.7 K/UL (4.8-10.8) *H 22.0 K/UL (4.8-10.8) H 14.0 K/UL (4.8-10.8) H Red Blood Count 4.29 M/UL (4.20-5.40) 4.56 M/UL (4.20-5.40) 3.49 M/UL (4.20-5.40) L Hemoglobin 10.7 G/DL (12.0-16.0) L 11.2 G/DL (12.0-16.0) L 8.6 G/DL (12.0-16.0) L Hematocrit 34.7 % (37.0-47.0) L 36.3 % (37.0-47.0) L 27.9 % (37.0-47.0) L Mean Corpuscular Volume 81 FL (80-99) 80 FL (80-99) 80 FL (80-99) Mean Corpuscular Hemoglobin 24.9 PG (27.0-31.0) L 24.7 PG (27.0-31.0) L 24.8 PG (27.0-31.0) L Mean Corpuscular Hemoglobin Concent 30.8 G/DL (32.0-36.0) L 30.9 G/DL (32.0-36.0) L 30.9 G/DL (32.0-36.0) L Red Cell Distribution Width 12.2 % (11.6-14.8) 13.3 % (11.6-14.8) 13.0 % (11.6-14.8) Platelet Count 479 K/UL (150-450) H 500 K/UL (150-450) H 398 K/UL (150-450) Mean Platelet Volume 5.8 FL (6.5-10.1) L 5.5 FL (6.5-10.1) L 5.6 FL (6.5-10.1) L Neutrophils (%) (Auto) % (45.0-75.0) % (45.0-75.0) 73.6 % (45.0-75.0) Lymphocytes (%) (Auto) % (20.0-45.0) % (20.0-45.0) 17.9 % (20.0-45.0) L Monocytes (%) (Auto) % (1.0-10.0) % (1.0-10.0) 6.8 % (1.0-10.0) Eosinophils (%) (Auto) % (0.0-3.0) % (0.0-3.0) 0.9 % (0.0-3.0) Basophils (%) (Auto) % (0.0-2.0) % (0.0-2.0) 0.9 % (0.0-2.0) Differential Total Cells Counted 100 100 Neutrophils % (Manual) 91 % (45-75) H 84 % (45-75) H Lymphocytes % (Manual) 3 % (20-45) L 9 % (20-45) L Monocytes % (Manual) 3 % (1-10) 7 % (1-10) Eosinophils % (Manual) 1 % (0-3) 0 % (0-3) Basophils % (Manual) 0 % (0-2) 0 % (0-2) Band Neutrophils 2 % (0-8) 0 % (0-8) Platelet Estimate Increased H Adequate Platelet Morphology Normal Normal Polychromasia 1+ Urine Color Pale yellow Urine Appearance Clear Urine pH 6.5 (4.5-8.0) Urine Specific [place] 1.015 (1.005-1.035) Urine Protein Negative (NEGATIVE) Urine Glucose (UA) Negative (NEGATIVE) Urine Ketones 1+ (NEGATIVE) H Urine Blood Negative (NEGATIVE) Urine Nitrite Negative (NEGATIVE) Urine Bilirubin Negative (NEGATIVE) Urine Urobilinogen Normal MG/DL (0.0-1.0) Urine Leukocyte Esterase Negative (NEGATIVE) Urine HCG, Qualitative Negative (NEGATIVE) Sodium Level 141 MMOL/L (136-145) 139 MMOL/L (136-145) Potassium Level 3.7 MMOL/L (3.5-5.1) 3.6 MMOL/L (3.5-5.1) Chloride Level 106 MMOL/L (98-107) 109 MMOL/L (98-107) H Carbon Dioxide Level 27 MMOL/L (21-32) 20 MMOL/L (21-32) L Anion Gap 8 mmol/L (5-15) 10 mmol/L (5-15) Blood Urea Nitrogen 14 mg/dL (7-18) 7 mg/dL (7-18) Creatinine 0.8 MG/DL (0.55-1.30) 0.5 MG/DL (0.55-1.30) L Estimat Glomerular Filtration Rate > 60 mL/min (>60) > 60 mL/min (>60) Glucose Level 139 MG/DL (74-106) H 71 MG/DL (74-106) L Calcium Level 8.2 MG/DL (8.5-10.1) L 6.9 MG/DL (8.5-10.1) L Total Bilirubin 0.6 MG/DL (0.2-1.0) 0.5 MG/DL (0.2-1.0) Aspartate Amino Transf (AST/SGOT) 37 U/L (15-37) 28 U/L (15-37) Alanine Aminotransferase (ALT/SGPT) 63 U/L (12-78) 48 U/L (12-78) Alkaline Phosphatase 51 U/L (46-116) 40 U/L (46-116) L Total Protein 7.6 G/DL (6.4-8.2) 5.7 G/DL (6.4-8.2) L Albumin 3.3 G/DL (3.4-5.0) L 2.5 G/DL (3.4-5.0) L Globulin 4.3 g/dL 3.2 g/dL Albumin/Globulin Ratio 0.8 (1.0-2.7) L 0.8 (1.0-2.7) L Lipase 512 U/L (73-393) H 732 U/L (73-393) H 728 U/L (73-393) H Lactic Acid Level 1.00 mmol/L (0.4-2.0) Height (Feet): 4 Height (Inches): 9.00 Weight (Pounds): 60 Medications Current Medications Medications (Trade) Dose Ordered Sig/Judit Route PRN Reason Start Time Stop Time Status Last Admin Dose Admin Acetaminophen (Tylenol) 650 mg Q4H PRN ORAL Mild Pain/Temp > 100.5 11/16/18 04:15 12/16/18 04:14 Iohexol (OMNIPAQUE-300 100ml) 100 ml NOW PRN INJ Radiology Procedure 11/15/18 23:30 11/17/18 23:22 Ondansetron HCl (Zofran) 4 mg Q6H PRN IVP Nausea & Vomiting 11/16/18 04:15 12/16/18 04:14 Sodium Chloride 1,000 ml @ 75 mls/hr [id number] IV 11/16/18 04:15 12/16/18 04:14 11/16/18 04:45 Assessment/Plan Assessment/Plan: Hematology Consultation REQ MD: Emilia Layne DOS: 11/16/18 RFC: Anemia eval ID 23-year-old female presents to the emergency department complaining of severe generalized weakness and fatigue post multiple episodes of nausea and vomiting since this morning. Patient also reports initial symptom was a sore throat this a.m. Patient denies fevers or chills she denies ill contacts with similar symptoms or recent travel. Patient denies abdominal tenderness denies or suspicion of . Patient denies dysuria, hematuria, urinary frequency or urgency. She reports multiple episodes of dizziness as well and having cold sweats. She denies MILNER or photophobia. Significant past medical history is Lc-Silver syndrome. She denies constipation or diarrhea. Denies trauma or fall. Denies rashes, swollen tender lymph nodes, night sweats or significant changes in weight unintentionally. Noted to have anemia and heme was asked to evaluate. Coded Allergies: No Known Allergies (Unverified , 05/27/16) Patient History Past Medical History: see triage record Past Surgical History: none Pertinent Family History: none Last Menstrual Period: last month Now: No Immunizations: UTD - received flu vaccination last week. Reviewed Nursing Documentation: PMH: Agreed; PSxH: Agreed Nursing Documentation-PMH Past Medical History: No History, Except For Hx Hypertension: No Hx Pacemaker: No Hx Asthma: Yes Hx COPD: No Hx Diabetes: No Hx Cancer: No Hx Gastrointestinal Problems: No Hx Dialysis: No Hx Neurological Problems: No Hx Cerebrovascular Accident: No Hx Seizures: No Review of Systems All Other Systems: negative except mentioned in HPI Physical Exam Vitals: reviewed General: alert, GCS 15, non-toxic, mild distress, thin Head: normocephalic, at Eyes: bilateral eye PERRL ENT: pharyngeal erythema Neck: full range of motion, no meningismus, no bony tend Respiratory: lungs clear, normal breath sounds, speaking full sentences CV: regular rate, rhythm, tachycardia GI: normal bowel sounds, non tender, nt Genitourinary: no CVA Msk: back normal, gait/station normal, nt Neurologic: alert, oriented x3, grossly normal Labs: noted Imaging: noted Assessment/Recs: # Anemia of iron deficiency, anemia panel reviewed --> monitor anemia panel, ferritin of 5, likely due to menstruation --> evaluate for schistocytes --> transfuse as needed, hgb goal >7 --> monitor anticoagulants --> IV IRON x 5DAYS # Leukcytosis rule out infection, may be due to pancreatitis --> wbc 24-->13 --> on abx as per id --> currently urinanalysis is negative and bcxs negative as well --> morphine ordered # Pancreatitis is on ivf --> morphine prn pain # Nausea/vomiting administer zofran prn basis # Dvt ppx with scds Greatly appreciate consultation. Rene Moscoso MD Nov 16, 2018 10:17
[2018-11-16 10:39] LABS: FERRITIN 5 NG/ML (8-388)
[2018-11-16 11:13] LABS: % IRON SATURATION 7 % (15-50); IRON 31 ug/dL (50-175); TOTAL IRON BINDING CAPACITY 417 ug/dL (250-450)
[2018-11-16] MEDS ORDERED: Morphine Sulfate 2mg/ml Inj(IV/IM USE ONLY) IVP PRN (13:30)
--- NOTE | 2018-11-16 13:34 | NUR ---
*-* INSURANCE *-* ALL AVAILABLE CLINICALS AND REVIEWS HAVE BEEN FAXED TO: [employer] P- [phone] F- [phone]...REVIEW/CLINICAL
--- NOTE | 2018-11-16 13:34 | NUR ---
NURSE NOTES: Patient state she is hungry and her stomach and she feels shakey.Blood sugar checked and blood sugar is 52.Notified DR Love with order received.Per Charge Nurse danielle Kim to give Aplple juice even though patient is NPO.
[2018-11-16] MEDS ORDERED: D5 1/2NS w/KCL 10meq 1,000 ML IV SCH (14:00)
[2018-11-16] MEDS: D5 1/2NS w/KCL 10meq 1,000 ML IV SCH (14:57)
--- NOTE | 2018-11-16 14:58 | NUR ---
NURSE NOTES: Patient resting,patient state she feels better blood sugar at this time is 119mg/dl.patient started her menses,tylenol given at 1403 for complaint of abdominal discomfort with patient state after tylenol she feels better.
--- NOTE | 2018-11-16 15:15 | NUR ---
RD ASSESSMENT & RECOMMENDATIONS SEE CARE ACTIVITY FOR COMPLETE ASSESSMENT DAILY ESTIMATED NEEDS: Needs based on Pancreatitis, Underweight/ 35.8kg 30-35 kcals/kg 4793-4802 total kcals 1-1.5 g protein/kg 36-54 g total protein 25-30 mL/kg 895-1074 total fluid mLs NUTRITION DIAGNOSIS: Altered nutrition related lab values R/T Pancreatitis as evidenced by elev lipase (728), admitted w/ c/o N/V -> now resolved, NPO at this time CURRENT DIET:NPO PO DIET RECOMMENDATIONS: Initiate diet per MD -> LOW FAT diet + Snacks TID in b/w meals ADDITIONAL RECOMMENDATIONS: * Standing weight for accurate CBW * Monitor lipase level * W/ oral diet, monitor intake and tolerance
--- NOTE | 2018-11-16 16:30 | History and Physical Report ---
DATE OF ADMISSION: 11/15/2018 HISTORY OF PRESENT ILLNESS: The patient presented with elevated lipase and leukocytosis, WBC elevated and admitted for pancreatitis. The patient complains of vomiting, dizziness, weakness, and chills for one day. The patient restaurant the day before. The patient has a history of chronic hypoglycemia and history of spinal fusion. Denies constipation. Denies abdominal pain. Denies chest pain or shortness of breath. PAST MEDICAL HISTORY: Significant for anemia, significant for asthma, history of thrombocytopenia, hypoglycemia. MEDICATIONS: None. PAST SURGICAL HISTORY: Spinal fusion. ALLERGIES: No known allergies. FAMILY HISTORY: Noncontributory. SOCIAL HISTORY: Denies history of illicit drugs, drinking, or drug abuse. Denies all of that. REVIEW OF SYSTEMS: HEENT: Denies headaches. RESPIRATORY: Denies shortness of breath. Denies cough. CARDIOVASCULAR: Denies chest pain. No orthopnea. GASTROINTESTINAL: Reports vomiting for one day. Denies abdominal pain. Denies hematemesis. EXTREMITIES: Denies pain. CENTRAL NERVOUS SYSTEM: Denies change in vision or speech pattern. Feels weak and dizzy. PHYSICAL EXAMINATION: VITAL SIGNS: Basically temperature is 97.8, pulse 98, blood pressure 106/68. HEENT: PERRLA. NECK: Supple. No lymphadenopathy. CHEST: Clear to auscultation. CARDIOVASCULAR: Regular rate and rhythm. No murmur or extra sounds. GASTROINTESTINAL: Soft, nontender, nondistended. No organomegaly. EXTREMITIES: No edema. Moves all four extremities. NEUROLOGIC: Sensory intact to light touch. Reflexes equal on both sides. Moves all four extremities. LABORATORY DATA: WBC of 23.7, hemoglobin 10.7, platelet count of 479. Sodium 139, potassium 3.6, chloride 109, carbon dioxide of 20, BUN of 7, creatinine of 0.5, glucose of 71. Lipase of 732. Albumin of 2.5. ASSESSMENT AND PLAN: Leukocytosis, vomiting, weak. I have asked Dr. Sean Gomez, Dr. Guerrero see the patient for the above-mentioned diagnoses to see if they can help with the treatment of the leukocytosis and vomiting. We will monitor the patient. Shun Love M.D. DR: YEVGENIY JOB#: [id number] CC:
--- NOTE | 2018-11-16 18:15 | Consultation ---
DATE OF CONSULTATION: 11/16/2018 INFECTIOUS DISEASES CONSULTATION CONSULTING PHYSICIAN: Sean Gomez M.D. PRIMARY ATTENDING PHYSICIAN: Shun Love M.D. REASON FOR CONSULTATION: Acute pancreatitis. HISTORY OF PRESENT ILLNESS: The patient is a 23-year-old female admitted last night complaining of nausea, vomiting, lightheadedness, weakness. The patient had no abdominal pain, was found to have significant leukocytosis of 23.7. At the time of admission that is coming down. 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 PAST MEDICAL HISTORY: She has history of scoliosis, spinal fusion seven years ago, kind of congenital disease like Lc-Silver, has history of history of anemia. ALLERGIES: No known drug allergies. MEDICATIONS: Sodium chloride, Zofran, Tylenol. SOCIAL HISTORY: Single. Denies alcohol, drug abuse, or smoking. REVIEW OF SYSTEMS: No fever. No chills. No nausea or vomiting at the present time, feels very hungry. No coughing. No problem passing urine. PHYSICAL EXAMINATION: VITAL SIGNS: Temperature is 98.1, pulse 67, blood pressure 90/75. GENERAL APPEARANCE: No acute distress, very underweight and has very small body. HEAD AND NECK: [place] conjunctivae. HEART: Normal rate. LUNGS: Clear. ABDOMEN: Flat, soft, nontender. EXTREMITIES: No edema. LABORATORY AND DIAGNOSTIC DATA: WBC today is 14 coming down 23.7, hemoglobin 8.6, hematocrit 27.9, platelets 398. Sodium 139, potassium 3.6, chloride 109, bicarbonate 20, BUN 7, creatinine 0.5, glucose is 71, albumin 2.5. Lipase is 728. CT scan of the abdomen and pelvis was unremarkable. IMPRESSION: Acute pancreatitis, has leukocytosis that is improving, has anemia, failure to thrive, and cachexia. RECOMMENDATION: 1. Observe off antibiotic. 2. We will follow up the CBC. At the end of my exam, I thank Dr. Love for involving me in the care of this patient. Sean Gomez M.D. DR: Shalini JOB#: [id number] CC: SHAHRIAR
--- NOTE | 2018-11-16 18:30 | NUR ---
NURSE NOTES: Patient resting,no complaints at this time.IV fluids continue to infuse as ordered.Call light within reach.
--- NOTE | 2018-11-16 19:47 | NUR ---
HAND-OFF: Report given to PENNY RIOS.
--- NOTE | 2018-11-16 19:51 | NUR ---
CASE MANAGEMENT: REVIEW 23Y/FEMALE PRESENTED TO ED FROM HOME CC: SORE THROAT . N/V SI: PANCREATITIS T 98.1 HR 116 RR 20 BP 102/70 SAT 98% ROOM AIR WBC 23.7 H/H 10.7/34.7 LIPASE 732 IS: NS IVF BOLUS X1 PATIENT ADMITTED TO MED/SURG UNIT 11/15/2018 DCP: PATIENT IS FROM HOME
--- NOTE | 2018-11-16 19:56 | NUR ---
NURSE NOTES: Received patient in no apparent distress. A&OX4. IV site patent and intact. Remind patient collect stool sample, patient fully understood. Bed in lowest position. Call light within reach. Will continue to monitor.
[2018-11-16] MEDS: Iron Sucrose 100 MG in NS 55 ML IV SCH (20:38)
--- NOTE | 2018-11-16 21:55 | General Progress Note ---
Assessment/Plan Assessment/Plan: Assessment - Leukocytosis, pharyngitis, constitutional symptoms - ? viral syndrome - mildly elevated lipase with normal pancreas on CT - ? non pancreatic source - short stature, ? Silver-Rodriguez syndrome - anemia Recommendations - begin clears and advance as tolerated - Abx per ID - follow symptoms and labs Subjective Allergies: Coded Allergies: No Known Allergies (Unverified , 05/27/16) Objective Last 24 Hour Vital Signs Date Time Temp Pulse Resp B/P (MAP) Pulse Ox O2 Delivery O2 Flow Rate FiO2 11/16/18 20:00 98.4 99 20 114/67 (83) 97 11/16/18 16:00 98.5 110 21 97/65 (76) 97 11/16/18 13:24 97.7 122 18 117/62 (80) 98 11/16/18 09:00 Room Air 11/16/18 08:00 98.1 67 15 90/75 (80) 96 11/16/18 04:00 98.9 97 18 101/68 (79) 98 11/16/18 03:22 Room Air 11/16/18 02:00 98.1 100 18 128/83 (98) 99 11/16/18 01:45 97.8 96 18 106/68 99 Room Air 11/16/18 01:19 97.8 98 19 106/68 97 Room Air 11/15/18 23:14 98.0 98 17 104/71 98 Room Air Intake and Output 11/15/18 11/16/18 19:00 07:00 Intake Total 6000 ml Balance 6000 ml Intake Oral 0 ml IV Total 6000 ml # Voids 5 Laboratory Tests 11/15/18 23:00: White Blood Count 22.0H, Red Blood Count 4.56, Hemoglobin 11.2L, Hematocrit 36.3L, Mean Corpuscular Volume 80, Mean Corpuscular Hemoglobin 24.7L, Mean Corpuscular Hemoglobin Concent 30.9L, Red Cell Distribution Width 13.3, Platelet Count 500H, Mean Platelet Volume 5.5L, Neutrophils (%) (Auto) , Lymphocytes (%) (Auto) , Monocytes (%) (Auto) , Eosinophils (%) (Auto) , Basophils (%) (Auto) , Differential Total Cells Counted 100, Neutrophils % ( Manual) 84H, Lymphocytes % (Manual) 9L, Monocytes % (Manual) 7, Eosinophils % ( Manual) 0, Basophils % (Manual) 0, Band Neutrophils 0, Platelet Estimate Adequate, Platelet Morphology Normal, Lactic Acid Level 1.00, Lipase 732H 11/16/18 05:30: White Blood Count 14.0H, Red Blood Count 3.49L, Hemoglobin 8.6L, Hematocrit 27.9L, Mean Corpuscular Volume 80, Mean Corpuscular Hemoglobin 24.8L, Mean Corpuscular Hemoglobin Concent 30.9L, Red Cell Distribution Width 13.0, Platelet Count 398, Mean Platelet Volume 5.6L, Neutrophils (%) (Auto) 73.6, Lymphocytes (%) (Auto) 17.9L, Monocytes (%) (Auto) 6.8, Eosinophils (%) (Auto) 0.9, Basophils (%) (Auto) 0.9, Lipase 728H, Reticulocyte Count 1.8, Sodium Level 139, Potassium Level 3.6, Chloride Level 109H, Carbon Dioxide Level 20L, Anion Gap 10, Blood Urea Nitrogen 7, Creatinine 0.5L, Estimat Glomerular Filtration Rate > 60, Glucose Level 71L, Calcium Level 6.9L, Iron Level 31L, Total Iron Binding Capacity 417, Percent Iron Saturation 7L, Unsaturated Iron Binding 386H, Ferritin 5L, Total Bilirubin 0.5, Aspartate Amino Transf (AST/SGOT ) 28, Alanine Aminotransferase (ALT/SGPT) 48, Alkaline Phosphatase 40L, Total Protein 5.7L, Albumin 2.5L, Globulin 3.2, Albumin/Globulin Ratio 0.8L, Carcinoembryonic Antigen [Pending], Vitamin B12 Level 487, Thyroid Stimulating Hormone (TSH) 1.786 11/16/18 10:55: Urine Opiates Screen Negative, Urine Barbiturates Screen Negative, Phencyclidine (PCP) Screen Negative, Urine Amphetamines Screen Negative, Urine Benzodiazepines Screen Negative, Urine Cocaine Screen Negative, Urine Marijuana (THC) Screen Negative Height (Feet): 4 Height (Inches): 9.00 Weight (Pounds): 60 Ta Guerrero MD Nov 16, 2018 21:55
[2018-11-17] VITALS: BP 119/85
[2018-11-17 04:00] VITALS: BP 97/66
--- NOTE | 2018-11-17 04:15 | Consultation ---
DATE OF CONSULTATION: 11/16/2018 GASTROENTEROLOGY CONSULTATION CONSULTING PHYSICIAN: Ta Guerrero M.D. CHIEF COMPLAINT: I was asked to see this patient by Dr. Shun Love for evaluation of abdominal symptoms and elevated lipase. HISTORY OF PRESENT ILLNESS: The patient is a 23-year-old white woman, who comes into the hospital with a three-day history of sore throat followed by one day of nausea, weakness, lightheadedness, and she was seen in the emergency room where laboratory parameters showed predominant leukocytosis. CT scan of the abdomen and pelvis showed no significant pathology, but the laboratory profile showed mild elevation in lipase and therefore she was admitted. She has not had any history of pancreatitis in the past. She does not drink alcohol. 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 FAMILY HISTORY: Positive for diabetes. SOCIAL HISTORY: The patient is single. She has no children. She does not smoke or drink alcohol. ALLERGIES: None. MEDICATIONS: None. REVIEW OF SYSTEMS: Otherwise negative. PHYSICAL EXAMINATION: GENERAL: Thin, short-statured woman, seen in her room. HEENT: Normocephalic and atraumatic. NECK: Supple. CHEST: Clear to auscultation. CARDIOVASCULAR: Revealed a regular rate. ABDOMEN: Soft, flat. Good bowel sounds. There is no tenderness. EXTREMITIES: No edema. LABORATORY AND DIAGNOSTIC DATA: Laboratory data and imaging studies were noted. ASSESSMENT: This patient presents with constellation of symptoms such as sore throat, nausea, and weakness along with some leukocytosis, which appears to be transient. This could all be from a viral syndrome, which is resolving spontaneously. The patient does not have any abdominal pain or tenderness to substantiate a major pancreatitis. The elevation in lipase is somewhat mild and perhaps not pancreatic in source. If the patient's condition continues to improve, no further workup will be necessary. RECOMMENDATIONS: 1. Advance oral intake as tolerated. 2. Follow laboratory parameters and exam. 3. Further recommendations to follow. Thank you for asking me to participate in the care of this patient. Ta Guerrero M.D. DR: Donna JOB#: [id number] CC: SHAHRIAR
[2018-11-17] MEDS: D5 1/2NS w/KCL 10meq 1,000 ML IV SCH ×3 (05:19→20:31)
[2018-11-17 06:11] LABS: BASOPHILS % (AUTO) 1.1 % (0.0-2.0); EOSINOPHILS % (AUTO) 1.6 % (0.0-3.0); HEMOGLOBIN 9.5 G/DL (12.0-16.0); LYMPHOCYTES % (AUTO) 14.8 % (20.0-45.0); MEAN CORPUSCULAR VOLUME 80 FL (80-99); MONOCYTES % (AUTO) 10.1 % (1.0-10.0); NEUTROPHILS % (AUTO) 72.4 % (45.0-75.0); PLATELET COUNT 424 K/UL (150-450); RED BLOOD COUNT 3.85 M/UL (4.20-5.40); RED CELL DISTRIBUTION WIDTH 13.2 % (11.6-14.8); WHITE BLOOD COUNT 8.9 K/UL (4.8-10.8)
--- NOTE | 2018-11-17 06:25 | Hematology/Onc Progress Note ---
Assessment/Plan Assessment/Plan Assessment/Recs: # Anemia of iron deficiency, anemia panel reviewed, has been started on iron, due to menstration --> monitor anemia panel, ferritin of 5, likely due to menstruation --> evaluate for schistocytes and none noted --> transfuse as needed, hgb goal >7 --> IV IRON x 5 DAYS --> hgb 11.2-->8.6 # Leukcytosis rule out infection, may be due to pancreatitis --> wbc 24-->13 --> on abx as per id --> currently urinanalysis is negative and bcxs negative as well --> morphine ordered # Pancreatitis is on ivf --> morphine prn pain --> as per gi # Nausea/vomiting administer zofran prn basis # Dvt ppx with scds and ambulation Greatly appreciate consultation. Subjective Constitutional: Denies: no symptoms, chills, fever, malaise, weakness, other HEENT: Denies: no symptoms, eye pain, blurred vision, tearing, double vision, ear pain, ear discharge, nose pain, nose congestion, throat pain, throat swelling, mouth pain, mouth swelling, other Respiratory: Denies: no symptoms, cough, shortness of breath, SOB with excertion, SOB at rest, sputum, wheezing, other Genitourinary: Denies: no symptoms, burning, discharge, frequency, flank pain, hematuria, incontinence, pain, urgency, other Neurologic/Psychiatric: Denies: no symptoms, anxiety, depressed, emotional problems, headache, numbness, paresthesia, pre-existing deficit, seizure, tingling, tremors, weakness, other Endocrine: Denies: no symptoms, excessive sweating, flushing, intolerance to cold, intolerance to heat, increased hunger, increased thirst, increased urine, unexplained weight gain, unexplained weight loss, other Hematologic/Lymphatic: Denies: no symptoms, anemia, easy bleeding, easy bruising, adenopathy, other Allergies: Coded Allergies: No Known Allergies (Unverified , 05/27/16) Subjective 11/17: no major changes, remains on iv iron, less abd pain Objective Objective Current Medications Medications (Trade) Dose Ordered Sig/Judit Route PRN Reason Start Time Stop Time Status Last Admin Dose Admin Acetaminophen (Tylenol) 650 mg Q4H PRN ORAL Mild Pain/Temp > 100.5 9/25/19 04:15 12/16/18 04:14 11/16/18 20:41 Dextrose/ Electrolytes 1,000 ml @ 75 mls/hr [id number] IV 11/16/18 15:00 12/16/18 14:59 11/17/18 05:19 Iohexol (OMNIPAQUE-300 100ml) 100 ml NOW PRN INJ Radiology Procedure 11/15/18 23:30 11/17/18 23:22 Iron Sucrose 100 mg/Sodium Chloride 60 ml @ 240 mls/hr BEDTIME IV 11/16/18 21:00 11/20/18 21:14 11/16/18 20:38 Morphine Sulfate (Morphine Sulfate) 1 mg Q6H PRN IVP For Pain 11/16/18 13:30 11/23/18 13:29 Ondansetron HCl (Zofran) 4 mg Q6H PRN IVP Nausea & Vomiting 11/16/18 04:15 12/16/18 04:14 Last 24 Hour Vital Signs Date Time Temp Pulse Resp B/P (MAP) Pulse Ox O2 Delivery O2 Flow Rate FiO2 11/17/18 04:00 98.4 96 20 97/66 (76) 100 11/17/18 00:00 98.1 88 18 119/85 (96) 95 11/16/18 21:00 Room Air 11/16/18 20:00 98.4 99 20 114/67 (83) 97 11/16/18 16:00 98.5 110 21 97/65 (76) 97 11/16/18 13:24 97.7 122 18 117/62 (80) 98 11/16/18 09:00 Room Air 11/16/18 08:00 98.1 67 15 90/75 (80) 96 11/16/18 04:00 98.9 97 18 101/68 (79) 98 11/16/18 03:22 Room Air 11/16/18 02:00 98.1 100 18 128/83 (98) 99 11/16/18 01:45 97.8 96 18 106/68 99 Room Air 11/16/18 01:19 97.8 98 19 106/68 97 Room Air 11/15/18 23:14 98.0 98 17 104/71 98 Room Air 11/15/18 21:05 98.0 98 19 99/75 100 Room Air 11/15/18 19:01 92 20 Room Air 11/15/18 19:01 98.1 98 20 100/70 98 Room Air 11/15/18 18:54 98.1 116 20 102/70 (81) 98 Room Air Intake and Output 11/16/18 11/17/18 18:59 06:59 Intake Total 225 ml 810 ml Balance 225 ml 810 ml IV Total 225 ml 810 ml Labs Test 11/15/18 19:00 11/15/18 23:00 11/16/18 05:30 11/16/18 10:55 White Blood Count 23.7 K/UL (4.8-10.8) 22.0 K/UL (4.8-10.8) 14.0 K/UL (4.8-10.8) Red Blood Count 4.29 M/UL (4.20-5.40) 4.56 M/UL (4.20-5.40) 3.49 M/UL (4.20-5.40) Hemoglobin 10.7 G/DL (12.0-16.0) 11.2 G/DL (12.0-16.0) 8.6 G/DL (12.0-16.0) Hematocrit 34.7 % (37.0-47.0) 36.3 % (37.0-47.0) 27.9 % (37.0-47.0) Mean Corpuscular Volume 81 FL (80-99) 80 FL (80-99) 80 FL (80-99) Mean Corpuscular Hemoglobin 24.9 PG (27.0-31.0) 24.7 PG (27.0-31.0) 24.8 PG (27.0-31.0) Mean Corpuscular Hemoglobin Concent 30.8 G/DL (32.0-36.0) 30.9 G/DL (32.0-36.0) 30.9 G/DL (32.0-36.0) Red Cell Distribution Width 12.2 % (11.6-14.8) 13.3 % (11.6-14.8) 13.0 % (11.6-14.8) Platelet Count 479 K/UL (150-450) 500 K/UL (150-450) 398 K/UL (150-450) Mean Platelet Volume 5.8 FL (6.5-10.1) 5.5 FL (6.5-10.1) 5.6 FL (6.5-10.1) Neutrophils (%) (Auto) % (45.0-75.0) % (45.0-75.0) 73.6 % (45.0-75.0) Lymphocytes (%) (Auto) % (20.0-45.0) % (20.0-45.0) 17.9 % (20.0-45.0) Monocytes (%) (Auto) % (1.0-10.0) % (1.0-10.0) 6.8 % (1.0-10.0) Eosinophils (%) (Auto) % (0.0-3.0) % (0.0-3.0) 0.9 % (0.0-3.0) Basophils (%) (Auto) % (0.0-2.0) % (0.0-2.0) 0.9 % (0.0-2.0) Differential Total Cells Counted 100 100 Neutrophils % (Manual) 91 % (45-75) 84 % (45-75) Lymphocytes % (Manual) 3 % (20-45) 9 % (20-45) Monocytes % (Manual) 3 % (1-10) 7 % (1-10) Eosinophils % (Manual) 1 % (0-3) 0 % (0-3) Basophils % (Manual) 0 % (0-2) 0 % (0-2) Band Neutrophils 2 % (0-8) 0 % (0-8) Platelet Estimate Increased Adequate Platelet Morphology Normal Normal Polychromasia 1+ Urine Color Pale yellow Urine Appearance Clear Urine pH 6.5 (4.5-8.0) Urine Specific [place] 1.015 (1.005-1.035) Urine Protein Negative (NEGATIVE) Urine Glucose (UA) Negative (NEGATIVE) Urine Ketones 1+ (NEGATIVE) Urine Blood Negative (NEGATIVE) Urine Nitrite Negative (NEGATIVE) Urine Bilirubin Negative (NEGATIVE) Urine Urobilinogen Normal MG/DL (0.0-1.0) Urine Leukocyte Esterase Negative (NEGATIVE) Urine HCG, Qualitative Negative (NEGATIVE) Sodium Level 141 MMOL/L (136-145) 139 MMOL/L (136-145) Potassium Level 3.7 MMOL/L (3.5-5.1) 3.6 MMOL/L (3.5-5.1) Chloride Level 106 MMOL/L (98-107) 109 MMOL/L (98-107) Carbon Dioxide Level 27 MMOL/L (21-32) 20 MMOL/L (21-32) Anion Gap 8 mmol/L (5-15) 10 mmol/L (5-15) Blood Urea Nitrogen 14 mg/dL (7-18) 7 mg/dL (7-18) Creatinine 0.8 MG/DL (0.55-1.30) 0.5 MG/DL (0.55-1.30) Estimat Glomerular Filtration Rate > 60 mL/min (>60) > 60 mL/min (>60) Glucose Level 139 MG/DL (74-106) 71 MG/DL (74-106) Calcium Level 8.2 MG/DL (8.5-10.1) 6.9 MG/DL (8.5-10.1) Total Bilirubin 0.6 MG/DL (0.2-1.0) 0.5 MG/DL (0.2-1.0) Aspartate Amino Transf (AST/SGOT) 37 U/L (15-37) 28 U/L (15-37) Alanine Aminotransferase (ALT/SGPT) 63 U/L (12-78) 48 U/L (12-78) Alkaline Phosphatase 51 U/L (46-116) 40 U/L (46-116) Total Protein 7.6 G/DL (6.4-8.2) 5.7 G/DL (6.4-8.2) Albumin 3.3 G/DL (3.4-5.0) 2.5 G/DL (3.4-5.0) Globulin 4.3 g/dL 3.2 g/dL Albumin/Globulin Ratio 0.8 (1.0-2.7) 0.8 (1.0-2.7) Lipase 512 U/L (73-393) 732 U/L (73-393) 728 U/L (73-393) Lactic Acid Level 1.00 mmol/L (0.4-2.0) Reticulocyte Count 1.8 % (0.5-2.0) Iron Level 31 ug/dL (50-175) Total Iron Binding Capacity 417 ug/dL (250-450) Percent Iron Saturation 7 % (15-50) Unsaturated Iron Binding 386 ug/dL (112-346) Ferritin 5 NG/ML (8-388) Vitamin B12 Level 487 PG/ML (193-986) Thyroid Stimulating Hormone (TSH) 1.786 uiU/mL (0.358-3.740) Urine Opiates Screen Negative (NEGATIVE) Urine Barbiturates Screen Negative (NEGATIVE) Phencyclidine (PCP) Screen Negative (NEGATIVE) Urine Amphetamines Screen Negative (NEGATIVE) Urine Benzodiazepines Screen Negative (NEGATIVE) Urine Cocaine Screen Negative (NEGATIVE) Urine Marijuana (THC) Screen Negative (NEGATIVE) Test 11/17/18 05:43 Height (Feet): 4 Height (Inches): 9.00 Weight (Pounds): 60 Objective Vitals: reviewed General: alert, mild distress, thin HEENT: normocephalic, bilateral eye PERRL full range of motion Resp: lungs clear, normal breath sounds, speaking full sentence CV: regular rate, rhythm, tachycardia GI: normal bowel sounds, non tender, nt : no CVA Msk: back normal, gait/station normal, nt Neurologic: alert, oriented x3, grossly normal Rene Moscoso MD Nov 17, 2018 06:25
--- NOTE | 2018-11-17 07:23 | NUR ---
HAND-OFF: Report given to Tiana RIOS.
[2018-11-17 08:00] VITALS: BP 101/67
--- NOTE | 2018-11-17 08:05 | NUR ---
NURSE NOTES: Patient is awake and allert,IV fluids infusing as ordered.patient starting clear liquids,will monitor.Call light within reach.
--- NOTE | 2018-11-17 08:45 | Consultation ---
History of Present Illness General Date patient seen: Nov 17, 2018 Present Illness Allergies: Coded Allergies: No Known Allergies (Unverified , 05/27/16) Medication History Scheduled Albuterol Sulfate* (Albuterol Sulfate Mdi*), 2 PUFF INH Q4H Azithromycin* (Zithromax*), 250 MG ORAL DAILY Azithromycin* (Zithromax*), 250 MG ORAL DAILY Guaifenesin (Guaifenesin), 1,200 MG PO Q12HR Prednisone* (Prednisone*), 40 MG ORAL DAILY Prednisone* (Prednisone*), 40 MG ORAL DAILY Scheduled PRN Codeine/Promethazine Hcl* (Promethazine-Codeine Syrup*), 5 ML ORAL Q6H PRN for For Cough Codeine/Promethazine Hcl* (Promethazine-Codeine Syrup*), 5 ML ORAL Q6H PRN for For Cough Patient History Healthcare decision maker Resuscitation status Full Code Advanced Directive on File Physical Exam Last 24 Hour Vital Signs Date Time Temp Pulse Resp B/P (MAP) Pulse Ox O2 Delivery O2 Flow Rate FiO2 11/17/18 04:00 98.4 96 20 97/66 (76) 100 11/17/18 00:00 98.1 88 18 119/85 (96) 95 11/16/18 21:00 Room Air 11/16/18 20:00 98.4 99 20 114/67 (83) 97 11/16/18 16:00 98.5 110 21 97/65 (76) 97 11/16/18 13:24 97.7 122 18 117/62 (80) 98 11/16/18 09:00 Room Air Intake and Output 11/16/18 11/17/18 18:59 06:59 Intake Total 225 ml 885 ml Balance 225 ml 885 ml IV Total 225 ml 885 ml # Voids 2 # Bowel Movements 1 Laboratory Tests Test 11/16/18 10:55 11/17/18 05:43 11/17/18 06:00 Urine Opiates Screen Negative (NEGATIVE) Urine Barbiturates Screen Negative (NEGATIVE) Phencyclidine (PCP) Screen Negative (NEGATIVE) Urine Amphetamines Screen Negative (NEGATIVE) Urine Benzodiazepines Screen Negative (NEGATIVE) Urine Cocaine Screen Negative (NEGATIVE) Urine Marijuana (THC) Screen Negative (NEGATIVE) White Blood Count 8.9 K/UL (4.8-10.8) Red Blood Count 3.85 M/UL (4.20-5.40) L Hemoglobin 9.5 G/DL (12.0-16.0) L Hematocrit 31.0 % (37.0-47.0) L Mean Corpuscular Volume 80 FL (80-99) Mean Corpuscular Hemoglobin 24.7 PG (27.0-31.0) L Mean Corpuscular Hemoglobin Concent 30.8 G/DL (32.0-36.0) L Red Cell Distribution Width 13.2 % (11.6-14.8) Platelet Count 424 K/UL (150-450) Mean Platelet Volume 5.1 FL (6.5-10.1) L Neutrophils (%) (Auto) 72.4 % (45.0-75.0) Lymphocytes (%) (Auto) 14.8 % (20.0-45.0) L Monocytes (%) (Auto) 10.1 % (1.0-10.0) H Eosinophils (%) (Auto) 1.6 % (0.0-3.0) Basophils (%) (Auto) 1.1 % (0.0-2.0) Lipase 187 U/L (73-393) Stool Occult Blood Pending Height (Feet): 4 Height (Inches): 9.00 Weight (Pounds): 60 Medications Current Medications Medications (Trade) Dose Ordered Sig/Judit Route PRN Reason Start Time Stop Time Status Last Admin Dose Admin Acetaminophen (Tylenol) 650 mg Q4H PRN ORAL Mild Pain/Temp > 100.5 11/16/18 04:15 12/16/18 04:14 11/16/18 20:41 Dextrose/ Electrolytes 1,000 ml @ 75 mls/hr [id number] IV 11/16/18 15:00 12/16/18 14:59 11/17/18 05:19 Iohexol (OMNIPAQUE-300 100ml) 100 ml NOW PRN INJ Radiology Procedure 11/15/18 23:30 11/17/18 23:22 Iron Sucrose 100 mg/Sodium Chloride 60 ml @ 240 mls/hr BEDTIME IV 11/16/18 21:00 11/20/18 21:14 11/16/18 20:38 Morphine Sulfate (Morphine Sulfate) 1 mg Q6H PRN IVP For Pain 11/16/18 13:30 11/23/18 13:29 Ondansetron HCl (Zofran) 4 mg Q6H PRN IVP Nausea & Vomiting 11/16/18 04:15 12/16/18 04:14 Assessment/Plan Assessment/Plan: (1) Scoliosis (2) H/o spinal fusion (3) Pancreatitis seen dictated Al Andre Nov 17, 2018 08:44
--- NOTE | 2018-11-17 11:26 | Infectious Diseases Prog Note ---
Assessment/Plan Assessment/Plan IMPRESSION: Acute pancreatitis, Leukocytosis anemia, History of scoliosis RECOMMENDATION: 1. Observe off antibiotic. Subjective ROS Limited/Unobtainable: No Constitutional: Reports: no symptoms Respiratory: Reports: no symptoms Gastrointestinal/Abdominal: Reports: diarrhea, other - tolerating liquid diet; Denies: nausea, vomiting Genitourinary: Reports: no symptoms Allergies: Coded Allergies: No Known Allergies (Unverified , 05/27/16) Objective Vital Signs Last 24 Hour Vital Signs Date Time Temp Pulse Resp B/P (MAP) Pulse Ox O2 Delivery O2 Flow Rate FiO2 11/17/18 04:00 98.4 96 20 97/66 (76) 100 11/17/18 00:00 98.1 88 18 119/85 (96) 95 11/16/18 21:00 Room Air 11/16/18 20:00 98.4 99 20 114/67 (83) 97 11/16/18 16:00 98.5 110 21 97/65 (76) 97 11/16/18 13:24 97.7 122 18 117/62 (80) 98 Height (Feet): 4 Height (Inches): 9.00 Weight (Pounds): 60 General Appearance: no acute distress HEENT: mucous membranes moist Respiratory/Chest: normal breath sounds Cardiovascular: normal rate Abdomen: soft, non tender Extremities: no edema Neurologic/Psychiatric: alert, oriented x 3, responsive Microbiology Date/Time Source Procedure Growth Status 11/15/18 23:00 Blood Blood Culture - Preliminary NO GROWTH AFTER 24 HOURS Resulted 11/15/18 22:45 Blood Blood Culture - Preliminary NO GROWTH AFTER 24 HOURS Resulted Laboratory Tests Test 11/17/18 05:43 11/17/18 06:00 White Blood Count 8.9 K/UL (4.8-10.8) Red Blood Count 3.85 M/UL (4.20-5.40) L Hemoglobin 9.5 G/DL (12.0-16.0) L Hematocrit 31.0 % (37.0-47.0) L Mean Corpuscular Volume 80 FL (80-99) Mean Corpuscular Hemoglobin 24.7 PG (27.0-31.0) L Mean Corpuscular Hemoglobin Concent 30.8 G/DL (32.0-36.0) L Red Cell Distribution Width 13.2 % (11.6-14.8) Platelet Count 424 K/UL (150-450) Mean Platelet Volume 5.1 FL (6.5-10.1) L Neutrophils (%) (Auto) 72.4 % (45.0-75.0) Lymphocytes (%) (Auto) 14.8 % (20.0-45.0) L Monocytes (%) (Auto) 10.1 % (1.0-10.0) H Eosinophils (%) (Auto) 1.6 % (0.0-3.0) Basophils (%) (Auto) 1.1 % (0.0-2.0) Lipase 187 U/L (73-393) Stool Occult Blood Negative (NEGATIVE) Current Medications Medications (Trade) Dose Ordered Sig/Judit Route PRN Reason Start Time Stop Time Status Last Admin Dose Admin Acetaminophen (Tylenol) 650 mg Q4H PRN ORAL Mild Pain/Temp > 100.5 11/16/18 04:15 12/16/18 04:14 11/16/18 20:41 Dextrose/ Electrolytes 1,000 ml @ 75 mls/hr [id number] IV 11/16/18 15:00 12/16/18 14:59 11/17/18 05:19 Iron Sucrose 100 mg/Sodium Chloride 60 ml @ 240 mls/hr BEDTIME IV 11/16/18 21:00 11/20/18 21:14 11/16/18 20:38 Ondansetron HCl (Zofran) 4 mg Q6H PRN IVP Nausea & Vomiting 11/16/18 04:15 12/16/18 04:14 Sean Gomez MD Nov 17, 2018 11:26
--- NOTE | 2018-11-17 11:49 | CDS Physician Query ---
Clarification is required for compliance, coding accuracy, and to reflect severity of illness for this patient Dear Dr. Guerrero Date: 11.17.18 CDS: Betsy Saenz Contact: Clinical Documentation supports: BMI 13.0 ,failure to thrive, albumin 2.5 Please select the most appropriate option: [ ] Protein/Calorie Malnutrition [ ] Mild [ ] Moderate [ ] Severe [ ] Hypoalbuminemia [ ] Cachexia [ ] Underweight [ ] Intestinal malabsorption [ ] Other [ ] Unable to determine [ ] Not Applicable Present on Admission: [ ] Yes [ ] No [ ] Clinically Undetermined Physician signature Date Please also document in your Progress Notes and/or Discharge Summary and indicate if the condition was present on admission. [id number]
[2018-11-17 12:00] VITALS: BP 106/63
[2018-11-17 16:00] VITALS: BP 110/80
--- NOTE | 2018-11-17 16:00 | Consultation ---
DATE OF CONSULTATION: 11/17/2018 PAIN MANAGEMENT CONSULTATION CONSULTING PHYSICIAN: Jennifer Beckett M.D. REFERRING PHYSICIAN: Shun Love M.D. PHYSICIAN QUALITY INTERN: Autumn Chandler CHIEF COMPLAINT: Pelvic pain. HISTORY OF PRESENT ILLNESS: This is a 23-year-old female, who is being seen on the Med/Surg floor of [facility] for initial pain management consultation. The patient was admitted under the care of Dr. Love today with complaints of menstrual cycle and now is having menstrual cramping. Due to this, has been having some pain; however, does not have abdominal pain. She was found to have pancreatitis. Has history of spinal fusion and scoliosis. We will start her on morphine 1 mg IV every 4 hours as needed for pain, which the patient had not taken and does not want to continue to take and will be discontinued. She is using Tylenol 650 mg every 4 hours as needed and is more comfortable with that. We were consulted so that the patient would have adequate pain control while here in the hospital. PAST MEDICAL HISTORY: Scoliosis, asthma. PAST SURGICAL HISTORY: Spinal fusion. SOCIAL HISTORY: Denies smoking tobacco, drinking alcohol, or IV drug abuse. ALLERGIES: No known drug allergies. MEDICATIONS: Denies taking medications as an outpatient. REVIEW OF SYSTEMS: Denies rash, fever, chills, sweating, dizziness, drowsiness, blurred vision, sore throat, or change in weight. No shortness of breath, palpitations, or cough. No nausea, vomiting, diarrhea, or blood in the stool or urine. No dysuria. PHYSICAL EXAMINATION: GENERAL: Alert, awake, and oriented. VITAL SIGNS: Blood pressure 97/66, heart rate is 96, O2 saturation is 100%, respiratory rate 20, temperature 98.4 degrees Fahrenheit. HEENT: PERRLA. NECK: Range of motion is full. No tenderness to paraspinal muscles. No adenopathy. LUNGS: Clear bilaterally. HEART: S1 and S2, regular. ABDOMEN: Soft, nontender. BACK: Range of motion is decreased in flexion and extension with well-healed surgical scar noted on midline of the thoracic spine. EXTREMITIES: Upper and lower extremity range of motion is full in all directions. No cyanosis. No clubbing. No edema. Sensory is intact. Reflexes are not obtainable. No adenopathy. ASSESSMENT AND PLAN: This is a 23-year-old female with scoliosis, history of spinal fusion, pancreatitis. The patient will be discontinued off the morphine and continue on Tylenol as needed. The patient was discussed with Dr. Beckett and Dr. Beckett concurred. We will follow the patient. Thank you very much for the courtesy of this consultation. Jennifer Beckett M.D. EDITH Chandler DR: MIGUEL JOB#: [id number] CC:
--- NOTE | 2018-11-17 18:30 | NUR ---
NURSE NOTES: Patient resting,tolerated regular diet,no complaints at his time.Call light within reach.
--- NOTE | 2018-11-17 19:32 | NUR ---
HAND-OFF: Report given to Gigi RIOS.
--- NOTE | 2018-11-17 19:33 | NUR ---
NURSE NOTES: Received patient in no apparent distress. A&OX4. IV site patent and intact. Visitor at bedside. Bed in lowest position. Call light within reach. Will continue to monitor.
--- NOTE | 2018-11-17 19:35 | NUR ---
HAND-OFF: Report given to PENNY RIOS.
[2018-11-17 20:00] VITALS: BP 110/72
[2018-11-17] MEDS: Iron Sucrose 100 MG in NS 55 ML IV SCH (20:31)
--- NOTE | 2018-11-17 21:27 | General Progress Note ---
Assessment/Plan Assessment/Plan: Assessment - Leukocytosis, pharyngitis, constitutional symptoms - ? viral syndrome - mildly elevated lipase with normal pancreas on CT - ? non pancreatic source - short stature, ? Silver-Rodriguez syndrome - anemia Recommendations - advance po - Abx per ID - follow symptoms and labs - d/c planning Subjective Allergies: Coded Allergies: No Known Allergies (Unverified , 05/27/16) Subjective Feels better tolerating clears Objective Last 24 Hour Vital Signs Date Time Temp Pulse Resp B/P (MAP) Pulse Ox O2 Delivery O2 Flow Rate FiO2 11/17/18 20:00 98.1 98 20 110/72 (85) 100 11/17/18 16:00 98.2 107 19 110/80 (90) 96 11/17/18 12:00 98.5 90 19 106/63 (77) 98 11/17/18 09:00 Room Air 11/17/18 08:00 97.9 101 19 101/67 (78) 97 11/17/18 04:00 98.4 96 20 97/66 (76) 100 11/17/18 00:00 98.1 88 18 119/85 (96) 95 Intake and Output 11/16/18 11/17/18 19:00 07:00 Intake Total 300 ml 810 ml Balance 300 ml 810 ml IV Total 300 ml 810 ml # Voids 2 # Bowel Movements 1 Laboratory Tests 11/17/18 05:43: White Blood Count 8.9, Red Blood Count 3.85L, Hemoglobin 9.5L, Hematocrit 31.0L , Mean Corpuscular Volume 80, Mean Corpuscular Hemoglobin 24.7L, Mean Corpuscular Hemoglobin Concent 30.8L, Red Cell Distribution Width 13.2, Platelet Count 424, Mean Platelet Volume 5.1L, Neutrophils (%) (Auto) 72.4, Lymphocytes (%) (Auto) 14.8L, Monocytes (%) (Auto) 10.1H, Eosinophils (%) (Auto ) 1.6, Basophils (%) (Auto) 1.1, Lipase 187 11/17/18 06:00: Stool Occult Blood Negative Height (Feet): 4 Height (Inches): 9.00 Weight (Pounds): 60 Objective Thin woman NCAT supple CTA RR abd soft no edema Ta Guerrero MD Nov 17, 2018 21:27
--- NOTE | 2018-11-17 21:41 | General Progress Note ---
Assessment/Plan Problem List: (1) Atypical pneumonia ICD Codes: J18.9 - Pneumonia, unspecified organism SNOMED: 825129028 (2) Leukocytosis ICD Codes: D72.829 - Elevated white blood cell count, unspecified SNOMED: 618184178, 840810373 Qualifiers: Qualified Codes: D72.829 - Elevated white blood cell count, unspecified (3) Thrombocythemia ICD Codes: D47.3 - Essential (hemorrhagic) thrombocythemia SNOMED: 5186346, 885864962 (4) Anemia ICD Codes: D64.9 - Anemia, unspecified SNOMED: 419439188 Qualifiers: Qualified Codes: D64.9 - Anemia, unspecified (5) Pancreatitis ICD Codes: K85.90 - Acute pancreatitis without necrosis or infection, unspecified SNOMED: 57564680, 696333352 Qualifiers: Qualified Codes: K85.90 - Acute pancreatitis without necrosis or infection, unspecified Status: progressing Assessment/Plan: afebrile nac anemia pancreatits is improving reviewed chart and labs Subjective ROS Limited/Unobtainable: Yes Allergies: Coded Allergies: No Known Allergies (Unverified , 05/27/16) Objective Last 24 Hour Vital Signs Date Time Temp Pulse Resp B/P (MAP) Pulse Ox O2 Delivery O2 Flow Rate FiO2 11/17/18 20:00 98.1 98 20 110/72 (85) 100 11/17/18 16:00 98.2 107 19 110/80 (90) 96 11/17/18 12:00 98.5 90 19 106/63 (77) 98 11/17/18 09:00 Room Air 11/17/18 08:00 97.9 101 19 101/67 (78) 97 11/17/18 04:00 98.4 96 20 97/66 (76) 100 11/17/18 00:00 98.1 88 18 119/85 (96) 95 Intake and Output 11/16/18 11/17/18 19:00 07:00 Intake Total 300 ml 810 ml Balance 300 ml 810 ml IV Total 300 ml 810 ml # Voids 2 # Bowel Movements 1 Laboratory Tests 11/17/18 05:43: White Blood Count 8.9, Red Blood Count 3.85L, Hemoglobin 9.5L, Hematocrit 31.0L , Mean Corpuscular Volume 80, Mean Corpuscular Hemoglobin 24.7L, Mean Corpuscular Hemoglobin Concent 30.8L, Red Cell Distribution Width 13.2, Platelet Count 424, Mean Platelet Volume 5.1L, Neutrophils (%) (Auto) 72.4, Lymphocytes (%) (Auto) 14.8L, Monocytes (%) (Auto) 10.1H, Eosinophils (%) (Auto ) 1.6, Basophils (%) (Auto) 1.1, Lipase 187 11/17/18 06:00: Stool Occult Blood Negative Height (Feet): 4 Height (Inches): 9.00 Weight (Pounds): 60 Cardiovascular: regular rhythm Respiratory/Chest: lungs clear Abdomen: soft Shun Love MD Nov 17, 2018 21:41
[2018-11-18] VITALS: BP 103/67
[2018-11-18 04:00] VITALS: BP 100/68
[2018-11-18 06:41] LABS: EOSINOPHILS % (AUTO) 2.8 % (0.0-3.0); HEMATOCRIT 31.8 % (37.0-47.0); HEMOGLOBIN 9.8 G/DL (12.0-16.0); LYMPHOCYTES % (AUTO) 17.2 % (20.0-45.0); MEAN CORPUSCULAR VOLUME 80 FL (80-99); MONOCYTES % (AUTO) 14.4 % (1.0-10.0); NEUTROPHILS % (AUTO) 63.7 % (45.0-75.0); PLATELET COUNT 418 K/UL (150-450); RED BLOOD COUNT 3.99 M/UL (4.20-5.40); RED CELL DISTRIBUTION WIDTH 13.2 % (11.6-14.8); WHITE BLOOD COUNT 8.2 K/UL (4.8-10.8)
--- NOTE | 2018-11-18 07:37 | NUR ---
HAND-OFF: Report given to Maria Esther RIOS.
--- NOTE | 2018-11-18 07:50 | NUR ---
NURSE NOTES: Received report from BLANCA Johnson. Patient eating breakfast, A&Ox4. On room air, no signs of distress or labored breathing. IV intact, patent, and infusing IV fluids. No complaints of pain. Bed in lowest position with call light in reach. Will continue with plan of care.
[2018-11-18 08:00] VITALS: BP 104/65
--- NOTE | 2018-11-18 08:24 | General Progress Note ---
Assessment/Plan Assessment/Plan: (1) Scoliosis (2) H/o spinal fusion (3) Pancreatitis Patient to be continued on Tylenol D/w Dr. Beckett and he concurred. Subjective Date patient seen: Nov 18, 2018 Time patient seen: 07:15 - am Allergies: Coded Allergies: No Known Allergies (Unverified , 05/27/16) Subjective REVIEW OF SYSTEMS: Denies rash, fever, chills, sweating, dizziness, drowsiness, blurred vision, sore throat, or change in weight. No shortness of breath, palpitations, or cough. No nausea, vomiting, diarrhea, or blood in the stool or urine. No dysuria. SUBJECTIVE: Patient is in bed reports that she has no pain at this time. Using the Tylenol as needed. Has no new complaints. Objective Last 24 Hour Vital Signs Date Time Temp Pulse Resp B/P (MAP) Pulse Ox O2 Delivery O2 Flow Rate FiO2 11/18/18 04:00 98.3 90 20 100/68 (79) 99 11/18/18 00:00 98.7 103 20 103/67 (79) 98 11/17/18 21:00 Room Air 11/17/18 20:00 98.1 98 20 110/72 (85) 100 11/17/18 16:00 98.2 107 19 110/80 (90) 96 11/17/18 12:00 98.5 90 19 106/63 (77) 98 11/17/18 09:00 Room Air Intake and Output 11/17/18 11/18/18 18:59 06:59 Intake Total 1725 ml 960 ml Balance 1725 ml 960 ml IV Total 825 ml 960 ml Other 900 ml # Voids 5 Laboratory Tests 11/18/18 06:00: White Blood Count 8.2, Red Blood Count 3.99L, Hemoglobin 9.8L, Hematocrit 31.8L , Mean Corpuscular Volume 80, Mean Corpuscular Hemoglobin 24.5L, Mean Corpuscular Hemoglobin Concent 30.7L, Red Cell Distribution Width 13.2, Platelet Count 418, Mean Platelet Volume 5.4L, Neutrophils (%) (Auto) 63.7, Lymphocytes (%) (Auto) 17.2L, Monocytes (%) (Auto) 14.4H, Eosinophils (%) (Auto ) 2.8, Basophils (%) (Auto) 2.0 Height (Feet): 4 Height (Inches): 9.00 Weight (Pounds): 60 Objective GENERAL: Alert, awake, and oriented. LUNGS: Clear bilaterally. HEART: S1 and S2, regular. ABDOMEN: Soft, nontender. EXTREMITIES: No cyanosis. No clubbing. No edema. NEURO: No changes. Al Andre Nov 18, 2018 08:24
--- NOTE | 2018-11-18 10:12 | Hematology/Onc Progress Note ---
Assessment/Plan Assessment/Plan Assessment/Recs: # Anemia of iron deficiency, anemia panel reviewed, has been started on iron, due to menstration --> monitor anemia panel, ferritin of 5, likely due to menstruation --> evaluate for schistocytes and none noted --> transfuse as needed, hgb goal >7 --> IV IRON x 5 DAYS through 11/20 --> hgb 11.2-->8.6-->9.8 --> stool ob negative # Leukcytosis rule out infection, may be due to pancreatitis --> currently resolved --> wbc 24-->13-->8.2 --> on abx as per id --> currently urinanalysis is negative and bcxs negative as well --> morphine ordered # Pancreatitis is on ivf --> morphine prn pain --> as per gi # Nausea/vomiting administer zofran prn basis # Dvt ppx with scds and ambulation Greatly appreciate consultation. Subjective Allergies: Coded Allergies: No Known Allergies (Unverified , 05/27/16) Subjective 11/17: no major changes, remains on iv iron, less abd pain 11/18: no acute events, stool ob negative, iv iron through 11/20 Objective Objective Current Medications Medications (Trade) Dose Ordered Sig/Judit Route PRN Reason Start Time Stop Time Status Last Admin Dose Admin Acetaminophen (Tylenol) 650 mg Q4H PRN ORAL Mild Pain/Temp > 100.5 11/16/18 04:15 12/16/18 04:14 11/17/18 14:44 Dextrose/ Electrolytes 1,000 ml @ 75 mls/hr [id number] IV 11/16/18 15:00 12/16/18 14:59 11/17/18 20:31 Iron Sucrose 100 mg/Sodium Chloride 60 ml @ 240 mls/hr BEDTIME IV 11/16/18 21:00 11/20/18 21:14 11/17/18 20:31 Ondansetron HCl (Zofran) 4 mg Q6H PRN IVP Nausea & Vomiting 11/16/18 04:15 12/16/18 04:14 Last 24 Hour Vital Signs Date Time Temp Pulse Resp B/P (MAP) Pulse Ox O2 Delivery O2 Flow Rate FiO2 11/18/18 08:00 98.6 88 19 104/65 (78) 98 9/27/19 04:00 98.3 90 20 100/68 (79) 99 11/18/18 00:00 98.7 103 20 103/67 (79) 98 11/17/18 21:00 Room Air 11/17/18 20:00 98.1 98 20 110/72 (85) 100 11/17/18 16:00 98.2 107 19 110/80 (90) 96 11/17/18 12:00 98.5 90 19 106/63 (77) 98 11/17/18 09:00 Room Air 11/17/18 08:00 97.9 101 19 101/67 (78) 97 11/17/18 04:00 98.4 96 20 97/66 (76) 100 11/17/18 00:00 98.1 88 18 119/85 (96) 95 11/16/18 21:00 Room Air 11/16/18 20:00 98.4 99 20 114/67 (83) 97 11/16/18 16:00 98.5 110 21 97/65 (76) 97 11/16/18 13:24 97.7 122 18 117/62 (80) 98 Intake and Output 11/17/18 11/18/18 18:59 06:59 Intake Total 1725 ml 960 ml Balance 1725 ml 960 ml IV Total 825 ml 960 ml Other 900 ml # Voids 5 Labs Test 11/15/18 19:00 11/15/18 23:00 11/16/18 05:30 11/16/18 10:55 White Blood Count 23.7 K/UL (4.8-10.8) 22.0 K/UL (4.8-10.8) 14.0 K/UL (4.8-10.8) Red Blood Count 4.29 M/UL (4.20-5.40) 4.56 M/UL (4.20-5.40) 3.49 M/UL (4.20-5.40) Hemoglobin 10.7 G/DL (12.0-16.0) 11.2 G/DL (12.0-16.0) 8.6 G/DL (12.0-16.0) Hematocrit 34.7 % (37.0-47.0) 36.3 % (37.0-47.0) 27.9 % (37.0-47.0) Mean Corpuscular Volume 81 FL (80-99) 80 FL (80-99) 80 FL (80-99) Mean Corpuscular Hemoglobin 24.9 PG (27.0-31.0) 24.7 PG (27.0-31.0) 24.8 PG (27.0-31.0) Mean Corpuscular Hemoglobin Concent 30.8 G/DL (32.0-36.0) 30.9 G/DL (32.0-36.0) 30.9 G/DL (32.0-36.0) Red Cell Distribution Width 12.2 % (11.6-14.8) 13.3 % (11.6-14.8) 13.0 % (11.6-14.8) Platelet Count 479 K/UL (150-450) 500 K/UL (150-450) 398 K/UL (150-450) Mean Platelet Volume 5.8 FL (6.5-10.1) 5.5 FL (6.5-10.1) 5.6 FL (6.5-10.1) Neutrophils (%) (Auto) % (45.0-75.0) % (45.0-75.0) 73.6 % (45.0-75.0) Lymphocytes (%) (Auto) % (20.0-45.0) % (20.0-45.0) 17.9 % (20.0-45.0) Monocytes (%) (Auto) % (1.0-10.0) % (1.0-10.0) 6.8 % (1.0-10.0) Eosinophils (%) (Auto) % (0.0-3.0) % (0.0-3.0) 0.9 % (0.0-3.0) Basophils (%) (Auto) % (0.0-2.0) % (0.0-2.0) 0.9 % (0.0-2.0) Differential Total Cells Counted 100 100 Neutrophils % (Manual) 91 % (45-75) 84 % (45-75) Lymphocytes % (Manual) 3 % (20-45) 9 % (20-45) Monocytes % (Manual) 3 % (1-10) 7 % (1-10) Eosinophils % (Manual) 1 % (0-3) 0 % (0-3) Basophils % (Manual) 0 % (0-2) 0 % (0-2) Band Neutrophils 2 % (0-8) 0 % (0-8) Platelet Estimate Increased Adequate Platelet Morphology Normal Normal Polychromasia 1+ Urine Color Pale yellow Urine Appearance Clear Urine pH 6.5 (4.5-8.0) Urine Specific Normal 1.015 (1.005-1.035) Urine Protein Negative (NEGATIVE) Urine Glucose (UA) Negative (NEGATIVE) Urine Ketones 1+ (NEGATIVE) Urine Blood Negative (NEGATIVE) Urine Nitrite Negative (NEGATIVE) Urine Bilirubin Negative (NEGATIVE) Urine Urobilinogen Normal MG/DL (0.0-1.0) Urine Leukocyte Esterase Negative (NEGATIVE) Urine HCG, Qualitative Negative (NEGATIVE) Sodium Level 141 MMOL/L (136-145) 139 MMOL/L (136-145) Potassium Level 3.7 MMOL/L (3.5-5.1) 3.6 MMOL/L (3.5-5.1) Chloride Level 106 MMOL/L (98-107) 109 MMOL/L (98-107) Carbon Dioxide Level 27 MMOL/L (21-32) 20 MMOL/L (21-32) Anion Gap 8 mmol/L (5-15) 10 mmol/L (5-15) Blood Urea Nitrogen 14 mg/dL (7-18) 7 mg/dL (7-18) Creatinine 0.8 MG/DL (0.55-1.30) 0.5 MG/DL (0.55-1.30) Estimat Glomerular Filtration Rate > 60 mL/min (>60) > 60 mL/min (>60) Glucose Level 139 MG/DL (74-106) 71 MG/DL (74-106) Calcium Level 8.2 MG/DL (8.5-10.1) 6.9 MG/DL (8.5-10.1) Total Bilirubin 0.6 MG/DL (0.2-1.0) 0.5 MG/DL (0.2-1.0) Aspartate Amino Transf (AST/SGOT) 37 U/L (15-37) 28 U/L (15-37) Alanine Aminotransferase (ALT/SGPT) 63 U/L (12-78) 48 U/L (12-78) Alkaline Phosphatase 51 U/L (46-116) 40 U/L (46-116) Total Protein 7.6 G/DL (6.4-8.2) 5.7 G/DL (6.4-8.2) Albumin 3.3 G/DL (3.4-5.0) 2.5 G/DL (3.4-5.0) Globulin 4.3 g/dL 3.2 g/dL Albumin/Globulin Ratio 0.8 (1.0-2.7) 0.8 (1.0-2.7) Lipase 512 U/L (73-393) 732 U/L (73-393) 728 U/L (73-393) Lactic Acid Level 1.00 mmol/L (0.4-2.0) Reticulocyte Count 1.8 % (0.5-2.0) Iron Level 31 ug/dL (50-175) Total Iron Binding Capacity 417 ug/dL (250-450) Percent Iron Saturation 7 % (15-50) Unsaturated Iron Binding 386 ug/dL (112-346) Ferritin 5 NG/ML (8-388) Carcinoembryonic Antigen 1.4 ng/mL (0.0-4.7) Vitamin B12 Level 487 PG/ML (193-986) Thyroid Stimulating Hormone (TSH) 1.786 uiU/mL (0.358-3.740) Urine Opiates Screen Negative (NEGATIVE) Urine Barbiturates Screen Negative (NEGATIVE) Phencyclidine (PCP) Screen Negative (NEGATIVE) Urine Amphetamines Screen Negative (NEGATIVE) Urine Benzodiazepines Screen Negative (NEGATIVE) Urine Cocaine Screen Negative (NEGATIVE) Urine Marijuana (THC) Screen Negative (NEGATIVE) Test 11/17/18 05:43 11/17/18 06:00 11/18/18 06:00 White Blood Count 8.9 K/UL (4.8-10.8) 8.2 K/UL (4.8-10.8) Red Blood Count 3.85 M/UL (4.20-5.40) 3.99 M/UL (4.20-5.40) Hemoglobin 9.5 G/DL (12.0-16.0) 9.8 G/DL (12.0-16.0) Hematocrit 31.0 % (37.0-47.0) 31.8 % (37.0-47.0) Mean Corpuscular Volume 80 FL (80-99) 80 FL (80-99) Mean Corpuscular Hemoglobin 24.7 PG (27.0-31.0) 24.5 PG (27.0-31.0) Mean Corpuscular Hemoglobin Concent 30.8 G/DL (32.0-36.0) 30.7 G/DL (32.0-36.0) Red Cell Distribution Width 13.2 % (11.6-14.8) 13.2 % (11.6-14.8) Platelet Count 424 K/UL (150-450) 418 K/UL (150-450) Mean Platelet Volume 5.1 FL (6.5-10.1) 5.4 FL (6.5-10.1) Neutrophils (%) (Auto) 72.4 % (45.0-75.0) 63.7 % (45.0-75.0) Lymphocytes (%) (Auto) 14.8 % (20.0-45.0) 17.2 % (20.0-45.0) Monocytes (%) (Auto) 10.1 % (1.0-10.0) 14.4 % (1.0-10.0) Eosinophils (%) (Auto) 1.6 % (0.0-3.0) 2.8 % (0.0-3.0) Basophils (%) (Auto) 1.1 % (0.0-2.0) 2.0 % (0.0-2.0) Lipase 187 U/L (73-393) Stool Occult Blood Negative (NEGATIVE) Height (Feet): 4 Height (Inches): 9.00 Weight (Pounds): 60 Objective Vitals: reviewed General: alert, mild distress, thin HEENT: normocephalic, bilateral eye PERRL full range of motion Resp: lungs clear, normal breath sounds, speaking full sentence CV: regular rate, rhythm, tachycardia GI: normal bowel sounds, non tender, nt : no CVA Msk: back normal, gait/station normal, nt Neurologic: alert, oriented x3, grossly normal Kleynberg,Rene L. MD Nov 18, 2018 10:12
[2018-11-18 12:00] VITALS: BP 115/82
--- NOTE | 2018-11-18 12:26 | General Progress Note ---
Assessment/Plan Problem List: (1) Atypical pneumonia ICD Codes: J18.9 - Pneumonia, unspecified organism SNOMED: 345288001 (2) Leukocytosis ICD Codes: D72.829 - Elevated white blood cell count, unspecified SNOMED: 174166231, 371938193 Qualifiers: Qualified Codes: D72.829 - Elevated white blood cell count, unspecified (3) Thrombocythemia ICD Codes: D47.3 - Essential (hemorrhagic) thrombocythemia SNOMED: 0868835, 071263078 (4) Anemia ICD Codes: D64.9 - Anemia, unspecified SNOMED: 715014170 Qualifiers: Qualified Codes: D64.9 - Anemia, unspecified (5) Pancreatitis ICD Codes: K85.90 - Acute pancreatitis without necrosis or infection, unspecified SNOMED: 62506147, 777018548 Qualifiers: Qualified Codes: K85.90 - Acute pancreatitis without necrosis or infection, unspecified Assessment/Plan: dc if cleared by gi anemia pancreatits is improving Subjective ROS Limited/Unobtainable: Yes Allergies: Coded Allergies: No Known Allergies (Unverified , 05/27/16) Objective Last 24 Hour Vital Signs Date Time Temp Pulse Resp B/P (MAP) Pulse Ox O2 Delivery O2 Flow Rate FiO2 11/18/18 09:00 Room Air 11/18/18 08:00 98.6 88 19 104/65 (78) 98 11/18/18 04:00 98.3 90 20 100/68 (79) 99 11/18/18 00:00 98.7 103 20 103/67 (79) 98 11/17/18 21:00 Room Air 11/17/18 20:00 98.1 98 20 110/72 (85) 100 11/17/18 16:00 98.2 107 19 110/80 (90) 96 Intake and Output 11/17/18 11/18/18 18:59 06:59 Intake Total 1725 ml 960 ml Balance 1725 ml 960 ml IV Total 825 ml 960 ml Other 900 ml # Voids 5 Laboratory Tests 11/18/18 06:00: White Blood Count 8.2, Red Blood Count 3.99L, Hemoglobin 9.8L, Hematocrit 31.8L , Mean Corpuscular Volume 80, Mean Corpuscular Hemoglobin 24.5L, Mean Corpuscular Hemoglobin Concent 30.7L, Red Cell Distribution Width 13.2, Platelet Count 418, Mean Platelet Volume 5.4L, Neutrophils (%) (Auto) 63.7, Lymphocytes (%) (Auto) 17.2L, Monocytes (%) (Auto) 14.4H, Eosinophils (%) (Auto ) 2.8, Basophils (%) (Auto) 2.0 Height (Feet): 4 Height (Inches): 9.00 Weight (Pounds): 60 Respiratory/Chest: no accessory muscle use Abdomen: non tender, soft Shun Love MD Nov 18, 2018 12:26
--- NOTE | 2018-11-18 13:00 | NUR ---
CHARGE NURSE NOTE: Spoke with . He does not want to continue her home or hosp. meds. He wants pt to follow with PCP and GI doctor and get meds from PCP.
--- NOTE | 2018-11-18 14:00 | NUR ---
CHARGE NURSE NOTE: Spoke with He cleared patient for discharge.
--- NOTE | 2018-11-18 14:56 | NUR ---
NURSE NOTES: Patient discharged home via [employer] transportation. Accompanied by RN to [employer] car. IV discontinued. No signs of infection at IV site. ID band removed. Patient in stable condition. Discharge instructions explained. Pt will follow up with primary MD and GI doctor.
--- NOTE | 2018-11-18 15:39 | NUR ---
*-* INSURANCE *-* ALL AVAILABLE CLINICALS AND REVIEWS HAVE BEEN FAXED TO: [employer] P- [phone] F- [phone]...REVIEW/CLINICAL
--- NOTE | 2018-11-18 16:23 | General Progress Note ---
Assessment/Plan Assessment/Plan: Assessment - Leukocytosis, pharyngitis, constitutional symptoms - ? viral syndrome - mildly elevated lipase with normal pancreas on CT - ? non pancreatic source - short stature, ? Silver-Rodriguez syndrome - anemia Recommendations - push po - Abx per ID - follow symptoms and labs - d/c planning Subjective Allergies: Coded Allergies: No Known Allergies (Unverified , 05/27/16) Subjective Feels better tolerating solids Objective Last 24 Hour Vital Signs Date Time Temp Pulse Resp B/P (MAP) Pulse Ox O2 Delivery O2 Flow Rate FiO2 11/18/18 12:00 98.8 103 19 115/82 (93) 99 11/18/18 09:00 Room Air 11/18/18 08:00 98.6 88 19 104/65 (78) 98 11/18/18 04:00 98.3 90 20 100/68 (79) 99 11/18/18 00:00 98.7 103 20 103/67 (79) 98 11/17/18 21:00 Room Air 11/17/18 20:00 98.1 98 20 110/72 (85) 100 Intake and Output 11/17/18 11/18/18 19:00 07:00 Intake Total 1800 ml 885 ml Balance 1800 ml 885 ml IV Total 900 ml 885 ml Other 900 ml # Voids 5 Laboratory Tests 11/18/18 06:00: White Blood Count 8.2, Red Blood Count 3.99L, Hemoglobin 9.8L, Hematocrit 31.8L , Mean Corpuscular Volume 80, Mean Corpuscular Hemoglobin 24.5L, Mean Corpuscular Hemoglobin Concent 30.7L, Red Cell Distribution Width 13.2, Platelet Count 418, Mean Platelet Volume 5.4L, Neutrophils (%) (Auto) 63.7, Lymphocytes (%) (Auto) 17.2L, Monocytes (%) (Auto) 14.4H, Eosinophils (%) (Auto ) 2.8, Basophils (%) (Auto) 2.0 Height (Feet): 4 Height (Inches): 9.00 Weight (Pounds): 60 Objective Thin woman NCAT supple CTA RR abd soft no edema Ta Guerrero MD Nov 18, 2018 16:23
--- NOTE | 2018-11-20 16:06 | Discharge Summary ---
Discharge Summary Discharge Summary _ DATE OF ADMISSION: 11/15/2018 DATE OF DISCHARGE: 11/18/2018 DISCHARGED BY: Dr. Shun Sebastian CONSULTANTS: Dr. Ta Moscoso BRIEF HOSPITAL COURSE: Patient is a 23-year-old female, who presented to ED complaining of severe generalized weakness and fatigue post multiple episodes of nausea and vomiting. Initial symptom was a sore throat. Patient denied fever or chills. She denied ill contacts with similar symptoms or recent travel. Denied dysuria, hematuria, urinary frequency or urgency. She has multiple episodes of dizziness as well as cold sweats. She has medical history of Lc-Silver syndrome, history of scoliosis, and spinal fusion. Upon evaluation at the ED, blood pressure was stable. Heart rate was slightly elevated to 116. Blood work showed WBC elevated to 24 with left shift. Hemoglobin 11, hematocrit 35. Platelet was elevated to 479. Calcium was low at 8.2. LFTs were normal. Lipase was elevated to 512. CT scan of the abdomen showed equivocal prominent mucosal enhancement of the stomach. Ultrasound of the abdomen showed nonvisualized gallbladder, nonvisualized left kidney, negative for biliary ductal dilatation. She was then admitted for pancreatitis. Patient was noted to have anemia. Anemia panel showed ferritin level of 5. Likely due to menstruation. She was given IV iron. Stool OB was negative. Leukocytosis was secondary to pancreatitis. Urinalysis and blood culture negative. GI was consulted. Patient had constellation of symptoms such as sore throat, nausea and weakness along with leukocytosis, which appeared to be transient. The patient did not have any abdominal pain or tenderness to substantiate the major acute pancreatitis. The elevation in lipase was mild and perhaps not pancreatic in source. Diet was advanced. She was given pain management. She was tolerating diet. Lipase normalized. She was eventually discharged home. FINAL DIAGNOSES: Possible viral syndrome Mildly elevated lipase with normal pancreas on CT Silver Lc syndrome Anemia of iron deficiency Malnutrition DISPOSITION: Patient was discharged home. DISCHARGE INSTRUCTIONS: Follow-up in a week. I have been assigned to complete a discharge summary on this account, I was not involved with the patient's management.--CASTRO Carmona Jacqueline Robles NP Nov 20, 2018 16:06
--- NOTE | 2018-11-21 16:13 | NUR ---
*-* INSURANCE *-* DISCHARGE SUMMARY HAS BEEN FAXED TO: [facility] P- [phone] [phone]...REVIEW/CLINICAL
--- NOTE | 2018-11-22 13:10 | NUR ---
*-* INSURANCE *-* ALL AVAILABLE CLINICALS AND REVIEWS AND DISCHARGE SUMMARY HAVE BEEN FAXED TO: [facility] P- [phone] F- [phone]...REVIEW/CLINICAL
== END 2018-11-18 14:50 | disposition home or self-care (01) | DRG 282 ==
LOC: EMR 20:30 → 4E 22:38 → EDBEDREQ 11-16 01:28
DX: K85.90 Acute pancreatitis without necrosis or infection, unspecified (principal); B34.9 Viral infection, unspecified; Q87.1 Congenital malformation syndromes predominantly associated with short stature; E46 Unspecified protein-calorie malnutrition; D63.8 Anemia in other chronic diseases classified elsewhere; D50.9 Iron deficiency anemia, unspecified; R11.2 Nausea with vomiting, unspecified; R62.7 Adult failure to thrive; Z68.1 Body mass index [BMI] 19.9 or less, adult; M41.9 Scoliosis, unspecified; Z98.1 Arthrodesis status; R74.8 Abnormal levels of other serum enzymes; D69.6 Thrombocytopenia, unspecified; R64 Cachexia
CPT/HCPCS: 36415; 74177; 76700; 80053; 80307; 81003; 81025; 82270; 82378; 82607; 82728; 82962; 83540; 83550; 83605; 83690; 84443; 85007; 85025; 85044; 87040; 96360; 96361; 99285

== ENCOUNTER 2018-12-30 10:10 | Emergency (ER) | payer OTHER ==
[~2018-12-30] VITALS: Ht 144.8 cm; Wt 28.6 kg
[2018-12-30] MEDS ORDERED: NKM (10:18)
[2018-12-30 10:19] VITALS: BP 101/68
--- NOTE | 2018-12-30 10:19 | NUR ---
ED Nurse Note: Patient walked in to ER due to cough, chest congestion and yellow mucus x 2 weeks, no fever. As per patient she has her inhaler. Has history of Lc Silver Syndrome and asthma. No SOB. Breathing even and unlabored. 99% RA. Alert and oriented. 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 VSS, HR 113.
--- NOTE | 2018-12-30 10:52 | NUR ---
ED Nurse Note: Xray at bedside.
--- NOTE | 2018-12-30 11:39 | Emergency Room Report ---
History of Present Illness General Chief Complaint: Upper Respiratory Illness Source: Patient Present Illness HPI Patient states that for the past 4 days she has had cough and congestions. She states that for the past 2 years she has had pneumonia and is concerned about pneumonia. She denies f/c/s, n/v/d, cp, sob. She has a hx of asthma but denies wheezing or chest tightness. Allergies: Coded Allergies: No Known Allergies (Unverified , 05/27/16) Patient History Past Medical History: see triage record, asthma, other - Genetic disorder. Social History: Denies: smoking, alcohol use, drug use Now: No Reviewed Nursing Documentation: PMH: Agreed; PSxH: Agreed Nursing Documentation-PMH Past Medical History: No History, Except For Hx Hypertension: No Hx Pacemaker: No Hx Asthma: Yes Hx COPD: No Hx Diabetes: No Hx Cancer: No Hx Gastrointestinal Problems: No Hx Dialysis: No Hx Neurological Problems: No Hx Cerebrovascular Accident: No Hx Seizures: No Review of Systems All Other Systems: negative except mentioned in HPI Physical Exam Vital Signs Date Time Temp Pulse Resp B/P (MAP) Pulse Ox O2 Delivery O2 Flow Rate FiO2 12/30/18 10:13 98.4 115 18 101/68 (79) 98 Room Air Sp02 EP Interpretation: reviewed, normal General Appearance: no apparent distress, alert, GCS 15, non-toxic Head: normocephalic, atraumatic Eyes: bilateral eye normal inspection, bilateral eye PERRL ENT: hearing grossly normal, normal pharynx, no angioedema, normal voice Neck: full range of motion, supple/symm/no masses Respiratory: chest non-tender, lungs clear, normal breath sounds, no respiratory distress, no retraction, no accessory muscle use, speaking full sentences Cardiovascular #1: regular rate, rhythm, no edema Gastrointestinal: normal bowel sounds, non tender, soft, non-distended, no guarding, no rebound Rectal: deferred Musculoskeletal: back normal, gait/station normal, normal range of motion, non- tender Neurologic: alert, oriented x3, responsive, motor strength/tone normal, sensory intact, speech normal Psychiatric: judgement/insight normal, memory normal, mood/affect normal, no suicidal/homicidal ideation Skin: no rash, normal color Medical Decision Making Diagnostic Impression: Primary Impression: Bronchitis Additional Impression: Asthma ER Course This patient has a hx of asthma and recurrent pna. 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 She also has a hx of asthma. Although, there is no e/o PNA on CXR, given the genetic disorder and hx of asthma, I feel that this patient will benefit from a course of antibiotics as a precaution. Overall, she is well-appearing and non-toxic overall. She is w/o respiratory distress and normal 02 saturations. She is given close return precautions and f/u instructions. Chest X-Ray Diagnostic Results Chest X-Ray Diagnostic Results : Chest X-Ray Ordered: Yes # of Views/Limited/Complete: 1 View Indication: Other EP Interpretation: Yes Interpretation: no consolidation, no effusion, no pneumothorax, no acute cardiopulmonary disease Impression: No acute disease Electronically Signed by: Martha Gilliam DO Last Vital Signs Date Time Temp Pulse Resp B/P (MAP) Pulse Ox O2 Delivery O2 Flow Rate FiO2 12/30/18 10:19 98.4 115 18 101/68 98 Room Air Status: improved Disposition: HOME, SELF-CARE Condition: Improved Referrals: NON PHYSICIAN (PCP) Martha Gilliam DO Dec 30, 2018 11:39
--- NOTE | 2018-12-30 11:47 | Diagnostic Imaging Report ---
Indication: Cough Comparison: None A single view chest radiograph was obtained. Findings: The chest is deformed and hypoplastic. There are spinal's stabilization rods with pedicle screws spanning the entirety of the thoracic spine extending into the cervical spine above the [id number] of this exam. The lungs are grossly clear. Heart size is normal. The aorta is ill-defined and not well evaluated. IMPRESSION: No acute cardiopulmonary disease identified. Instrumented fusion diffusely throughout the thoracic spine.
[2018-12-30] MEDS ORDERED: ZITHROMAX250 MG ORAL (11:54)
[2018-12-30 11:58] VITALS: BP 105/80
--- NOTE | 2018-12-30 11:58 | NUR ---
ED Nurse Note: Pt cleared by ERMD for discharge. DC instructions was given and explained to pt and verbalized understanding of teachings. Prescription was sent electronically. All medical deviecs such as ID band removed. Pt is AAO x4, ambulatory and left with all personal belongings.
== END 2018-12-30 11:58 | disposition home or self-care (01) ==
LOC: EMR 11:20
DX: J20.9 Acute bronchitis, unspecified (principal); J45.909 Unspecified asthma, uncomplicated
CPT/HCPCS: 71045; Z7502; 99283